=== PATIENT | male | born 1955 | race Caucasian/White ===

== ENCOUNTER 2020-05-22 21:05 | Emergency (ER) | payer OTHER ==
[2020-05-22] MEDS ORDERED: LIDOCAINE VISCOUS 2% SOLN 15 ML UDC PO ONE (21:06)
--- OUTSIDE RECORDS SUMMARY | 2020-05-22 21:08 | XMS REPORT | Clinical Summary ---
:1955 Author Organization [employer] Address [address] [place] [address] Care Team Providers Name Role Phone MD Kaitlin Primary Care Provider Allergies No Known Active Allergies Medications Medication Sig Dispensed Refills Start Date End Date Status magnesium gluconate Take 500 mg 0 Active (MAGONATE) 500 mg by mouth tablet tablet daily as needed. loratadine Take 10 mg by 0 Activ e (CLARITIN) 10 mg mouth daily tablet as needed for allergies. omeprazole Take 1 90 capsule 3 05/19/2019 Active (PriLOSEC) 20 MG capsule (20 capsule mg total) by mouth daily. tadalafiL (CIALIS) Take 5 mg by 0 Active 5 MG tablet mouth daily as needed for erectile dysfunction. cyanocobalamin Take 500 mcg 0 Ac tive (VITAMIN B-12) 500 by mouth MCG tablet daily. vitamin B complex Take by 0 Ac tive vit C no.3 (B mouth. COMPLEX PLUS VITAMIN C ORAL) vit C/vit Take by 0 Active D3/E/zinc/elderberr mouth. y (AIRBORNE VITS ZINC ELDERBERRY ORAL) ezetimibe (ZETIA) TAKE 1 TABLET 90 tablet 3 04/20/2020 Active 10 mg tablet BY MOUTH EVERY DAY carvediloL (COREG) TAKE 1 TABLET 180 tablet 3 05/17/2020 Active 12.5 MG tablet BY MOUTH TWICE A DAY pot chloride/leandra Take by mouth 0 03/27/20 Discontinued phos/mag (MEDI-LYTE as needed. 20 (Med List ORAL) Cleanup) atorvastatin Take 1 tablet 30 tablet 0 02/05/2019 03/27/20 Di scontinued (LIPITOR) 20 MG (20 mg total) 20 (Med List tablet by mouth Cleanup) every evening. carvedilol (COREG) Take 1 tablet 180 tablet 1 02/15/201906/17 Discontinued 12.5 MG tablet (12.5 mg 19 total) by mouth 2 (two) times a day. carvedilol (COREG) TAKE 1 TABLET 180 tablet 1 06/17/201905/17 Discontinued 12.5 MG tablet BY MOUTH TWO 20 TIMES DAILY ezetimibe (Zetia) Take 1 tablet 30 tablet 0 03/29/2020 0 Discontinued 10 mg tablet (10 mg total) 20 by mouth daily. Active Problems Problem Noted Date Alcoholic hepatitis without ascites 03/29/2020 Uncomplicated alcohol dependence 05/19/2019 Prostate cancer 01/21/2019 Anxiety BPH with elevated PSA GERD (gastroesophageal reflux disease) Hyperlipidemia Hypertension Hyponatremia Overview: 2012 was hospitalized; but stated it's in his family genes; takes medi lyte prn Encounters Date Type Specialty Care Team Description 05/16/2020 Refill Internal Medicine Anabella Walker MD 04/20/2020 Refill Internal Medicine Mary Madrigal MD 03/29/2020 Orders Only Internal Medicine Kaitlin, Alcoholic hepatitis without ascites (Primary Dx); MD Mary Mixed hyperlipi demia 03/27/2020 Office Visit Internal Medicine Kaitlin, Encounter for Medicare annual wellness exam (Primary Dx); MD Mary Essential hyper tension; Need for influe nza vaccination; BPH with elevat ed PSA; Prostate cancer (HCC); Gastroesophagea l reflux disease, unspecified whether esophagitis present; Anxiety; Mixed hyperlipi demia; Uncomplicated a lcohol dependence (HCC); Hyponatremia 03/27/2020 Travel 06/16/2019 Refill Internal Medicine Mary Madrigal MD 06/10/2019 Telephone Internal Medicine Mary Madrigal MD 06/07/2019 Hospital Encounter Radiology Kaitlin, Alcoholic cirrhosis of liver without ascites (HCC); MD Mary Abnormal LFTs; Uncomplicated a lcohol dependence (HCC) 06/07/2019 Hospital Encounter Radiology Kaitlin, Alcoholic cirrhosis of liver without ascites (HCC); MD Mary Abnormal LFTs; Uncomplicated a lcohol dependence (HCC) 05/24/2019 Telephone Internal Medicine Kaitlin Alcoholic cirrhosis of liver without ascites (HCC) (Primary Dx); MD Mary Abnormal LFTs; Uncomplicated a lcohol dependence (HCC) after 05/22/2019 Immunizations Name Administration Dates Next Due FLUZONE HIGH-DOSE PF 03/27/2020 Pneumococcal Conjugate 13-Valent 11/05/2018, 08/27/2016 Pneumococcal Polysaccharide 11/05/2018, 07/31/2015 Tdap 03/08/2010 Zoster 10/07/2014 Surgical History Surgery Date Site/Laterality Comments ORIF WRIST FRACTURE 06/23/1986 - Left 06/22/1987 CATARACT EXTRACTION W/ 2000/2002 Bilateral INTRAOCULAR LENS IMPLANT TONSILLECTOMY EYE SURGERY 2001,2002 Both eyes PROSTATECTOMY, 01/22/2019 N/A Procedure: ROBOT -ASSISTED LAPAROSCOPIC, LAPAROSCOPIC ROBOT-ASSISTED PROSTATECTOMY, B ILATERAL PELVIC LYMPH NOD E DISSECTION; Omaira geon: Alfredo Toribio MD; Location: [facility] IN [place]; Service: Urology ; Laterality: N/A; Medical devices from this surgery are in t he Implants section . COLONOSCOPY 06/23/2011 Medical History Medical History Date Comments Hypertension Hyperlipidemia History of concussion 1986- fell out of a tree during work Hyponatremia 2011 was hospitalize d; but stated it's in his family genes; takes medi lyte prn Does not exercise no chest pain or sob on stairs GERD (gastroesophageal reflux disease) Anxiety BPH with elevated PSA Prostate cancer (HCC) DX 11/2018 Scoliosis White coat syndrome with hypertension Dental crowns present Alcohol use 8 cans of beer juan manuel y but trying to cut back Renal insufficiency Hypercholesteremia Family History Medical History Relation Name Comments Heart disease Father CHF Relation Name Status Comments Father Social History Tobacco Use Types Packs/Day Years Used Date Never Smoker Smokeless Tobacco: Never Used Alcohol Use Drinks/Week oz/Week Comments Yes 5 Cans of beer 5.0 Alcohol Habits Answer Date Recorded How often do you have a drink containing 4 or more times a w la posta 05/19/2019 alcohol? How many drinks containing alcohol do you have 5 or 6 05/19/2019 on a typical day when you are drinking? How often do you have six or more drinks on one Monthly 05/19/2019 occasion? Sex Assigned at Date Recorded Male 05/17/2019 7:29 PM [employer] Last Filed Vital Signs Vital Sign Reading Time Taken Comments Blood Pressure 230/97 03/27/2020 11:45 AM CDT Pulse 69 03/27/2020 11:04 AM CDT Temperature 36.3 C (97.4 F) 03/27/2020 11:04 AM CDT Respiratory Rate - - Oxygen Saturation 96% 03/27/2020 11:04 AM CDT Inhaled Oxygen Concentration - - Weight 92.6 kg (204 lb 3.2 oz) 03/27/2020 11:04 AM CDT Height 170.2 cm (5' 7") 03/27/2020 11:04 AM CDT Body Mass Index 31.98 03/27/2020 11:04 AM CDT Plan of Treatment Date Type Specialty Care Team Description 09/25/2020 Office Visit Internal Medicine Mary Madrigal MD [address] [facility] [address] [place] [id number] 01 [phone] Health Maintenance Due Date Last Done Comments SHINGLES VACCINES (#2) 12/07/2014 10/07/2014 COLONOSCOPY SCREENING 06/23/2021 06/23/2011 65+ PNEUMOCOCCAL VACCINE (2 of 2 - 11/06/2023 11/05/2018, 0 11/05/2018, PPSV23) 08/27/2016, Additional history exists INFLUENZA VACCINE Completed 03/27/2020 Implants Implanted Type Area University Relations Recruiter Device Shelf Model / Identifier Expiration Serial / Date Lot Lens Lens Bilatera l: Eye Clip Ligtng Hem-O-Aura Endoscpc Aplr [facility] - [id number] Medica l N/A: N/A WECK CLOSURE 08/04/2020 [id number] / Implanted: Qty: 3 on 01/22/2019 by Alfredo Toribio MD at [facility] Clips for SYSTEMS / Internal Use Matrix Surgcl Matristem 5x5cm Psm Strl - [id number] - [id number] Spinal N/A: N/A [employer] 03/22/2020 [id number] / Implanted: Qty: 1 on 01/22/2019 by Alfredo Toribio MD at [facility] Implants [id number] / [id number] Kit Selnt Fibrin Humn Hmsts Surgy 5ml Evicel - [id number] Surgic al N/A: N/A ETHICON US-EH 08/20/2020 [id number] / Implanted: Qty: 1 on 01/22/2019 by Alfredo Toribio MD at [facility] Implants; / Expanders; [id number] Extenders; Surgical Wires Procedures Procedure Name Priority Date/Time Associated Diagnosis Comme nts VITAMIN B1 LEVEL Routine 03/27/2020 12:01 Encounter for Result s for this CDT Medicare annual procedure ar e in wellness exam the results Essential section. hypertension Need for influenza vaccination BPH with elevate d PSA Prostate cancer (HCC) Gastroesophageal reflux disease, unspecified whether esophagitis pres ent Anxiety Mixed hyperlipid emia Uncomplicated alcohol dependence (HCC) Hyponatremia VITAMIN B12 AND FOLATE Routine 03/27/2020 12:01 Encounter for Results for this CDT Medicare annual procedure ar e in wellness exam the results Essential section. hypertension Need for influenza vaccination BPH with elevate d PSA Prostate cancer (HCC) Gastroesophageal reflux disease, unspecified whether esophagitis pres ent Anxiety Mixed hyperlipid emia Uncomplicated alcohol dependence (HCC) Hyponatremia VITAMIN D 25 HYDROXY Routine 03/27/2020 12:01 Encounter for Re sults for this LEVEL CDT Medicare annual procedure ar e in wellness exam the results Essential section. hypertension Need for influenza vaccination BPH with elevate d PSA Prostate cancer (HCC) Gastroesophageal reflux disease, unspecified whether esophagitis pres ent Anxiety Mixed hyperlipid emia Uncomplicated alcohol dependence (HCC) Hyponatremia HEMOGLOBIN A1C Routine 03/27/2020 12:01 Encounter for Results for this CDT Medicare annual procedure ar e in wellness exam the results Essential section. hypertension Need for influenza vaccination BPH with elevate d PSA Prostate cancer (HCC) Gastroesophageal reflux disease, unspecified whether esophagitis pres ent Anxiety Mixed hyperlipid emia Uncomplicated alcohol dependence (HCC) Hyponatremia THYROID STIMULATING Routine 03/27/2020 12:01 Encounter for Res ults for this HORMONE PM CDT Medicare annual procedure ar e in wellness exam the results Essential section. hypertension Need for influenza vaccination BPH with elevate d PSA Prostate cancer (HCC) Gastroesophageal reflux disease, unspecified whether esophagitis pres ent Anxiety Mixed hyperlipid emia Uncomplicated alcohol dependence (HCC) Hyponatremia LIPID PANEL Routine 03/27/2020 12:01 Encounter for Results fo r this CDT Medicare annual procedure ar e in wellness exam the results Essential section. hypertension Need for influenza vaccination BPH with elevate d PSA Prostate cancer (HCC) Gastroesophageal reflux disease, unspecified whether esophagitis pres ent Anxiety Mixed hyperlipid emia Uncomplicated alcohol dependence (HCC) Hyponatremia COMPREHENSIVE Routine 03/27/2020 12:01 Encounter for Results f or this METABOLIC PANEL PM CDT Medicare annual procedure are in wellness exam the results Essential section. hypertension Need for influenza vaccination BPH with elevate d PSA Prostate cancer (HCC) Gastroesophageal reflux disease, unspecified whether esophagitis pres ent Anxiety Mixed hyperlipid emia Uncomplicated alcohol dependence (HCC) Hyponatremia CBC WITH PLATELET AND Routine 03/27/2020 12:01 Encounter for R esults for this DIFFERENTIAL PM CDT Medicare annual procedure ar e in wellness exam the results Essential section. hypertension Need for influenza vaccination BPH with elevate d PSA Prostate cancer (HCC) Gastroesophageal reflux disease, unspecified whether esophagitis pres ent Anxiety Mixed hyperlipid emia Uncomplicated alcohol dependence (HCC) Hyponatremia FLUZONE HIGH-DOSE QUAD Routine 03/27/2020 11:19 Need for influ richard Results for this PF (0.7ML SYRINGE) AM CDT vaccination procedure are in the results section. ECG 12-LEAD Routine 03/27/2020 11:15 Essential Results for this AM CDT hypertension procedure are i n the results section. URINALYSIS, AUTOMATED Routine 06/14/2019 8:53 Routine general Results for this WITH MICROSCOPY AM [employer] medical examination proce cody are in at a [facility] the results facility section. Prostate cancer (HCC) BPH with elevate d PSA Gastroesophageal reflux disease, esophagitis presence not specified Essential hypertension Mixed hyperlipid emia Anxiety Hyponatremia Refused influenza vaccine Shivering HEPATITIS C ANTIBODY Routine 06/14/2019 8:50 Alcoholic cirrho sis Results for this AM [employer]ER of liver without procedure a re in ascites (HCC) the results Abnormal LFTs section. Uncomplicated alcohol dependence (HCC) BILIRUBIN DIRECT Routine 06/14/2019 8:50 Alcoholic cirrhosis Results for this AM [employer] of liver without procedure a re in ascites (HCC) the results Abnormal LFTs section. Uncomplicated alcohol dependence (HCC) FERRITIN LEVEL Routine 06/14/2019 8:50 Alcoholic cirrhosis Re sults for this AM [employer]ARN[employer]SEMBLER of liver without procedure a re in ascites (HCC) the results Abnormal LFTs section. Uncomplicated alcohol dependence (HCC) HEPATITIS B SURFACE Routine 06/14/2019 8:50 Alcoholic cirrhos is Results for this ANTIBODY AM [employer]ER of liver without procedure a re in ascites (HCC) the results Abnormal LFTs section. Uncomplicated alcohol dependence (HCC) HEPATITIS B SURFACE Routine 06/14/2019 8:50 Alcoholic cirrhos is Results for this ANTIGEN AM [employer] of liver without procedure a re in ascites (HCC) the results Abnormal LFTs section. Uncomplicated alcohol dependence (HCC) HEPATITIS A ANTIBODY Routine 06/14/2019 8:50 Alcoholic cirrho sis Results for this TOTAL AM [employer]ARN[employer]SEM[employer]ER of liver without procedure a re in ascites (HCC) the results Abnormal LFTs section. Uncomplicated alcohol dependence (HCC) TRANSFERRIN LEVEL Routine 06/14/2019 8:50 Alcoholic cirrhosis Results for this AM W[employer]ARN[employer]SEMBLER of liver without procedure a re in ascites (HCC) the results Abnormal LFTs section. Uncomplicated alcohol dependence (HCC) TOTAL IRON BINDING Routine 06/14/2019 8:50 Alcoholic cirrhosi s Results for this CAPACITY AM WIRE [employer]ARNESS ASSEMBLER of liver without procedure a re in ascites (HCC) the results Abnormal LFTs section. Uncomplicated alcohol dependence (HCC) HEPATITIS B CORE Routine 06/14/2019 8:50 Alcoholic cirrhosis Results for this ANTIBODY TOTAL AM [employer]ARNESS [employer]SEMBLER of liver without procedure are in ascites (HCC) the results Abnormal LFTs section. Uncomplicated alcohol dependence (HCC) HEPATITIS A ANTIBODY Routine 06/14/2019 8:50 Alcoholic cirrho sis Results for this IGM AM [employer]ARN[employer]SEMBLER of liver without procedure a re in ascites (HCC) the results Abnormal LFTs section. Uncomplicated alcohol dependence (HCC) PROTHROMBIN TIME WITH Routine 06/14/2019 8:50 Alcoholic cirrh osis Results for this INR AM [employer]ER of liver without procedure a re in ascites (HCC) the results Abnormal LFTs section. Uncomplicated alcohol dependence (HCC) PARTIAL THROMBOPLASTIN Routine 06/14/2019 8:50 Alcoholic cirr hosis Results for this TIME (PTT) AM [employer] of liver without procedure a re in ascites (HCC) the results Abnormal LFTs section. Uncomplicated alcohol dependence (HCC) COPPER LEVEL, SERUM Routine 06/14/2019 8:50 Alcoholic cirrhos is Results for this AM [employer]ARN[employer]SEM[employer]ER of liver without procedure a re in ascites (HCC) the results Abnormal LFTs section. Uncomplicated alcohol dependence (HCC) CBC WITH PLATELET AND Routine 06/14/2019 8:50 Alcoholic cirrh osis Results for this DIFFERENTIAL AM [employer]ARN[employer]SEMBLER of liver without procedure a re in ascites (HCC) the results Abnormal LFTs section. Uncomplicated alcohol dependence (HCC) COMPREHENSIVE Routine 06/14/2019 8:50 Alcoholic cirrhosis Res ults for this METABOLIC PANEL AM [employer]ARNESS [employer]SEMBLER of liver without procedur e are in ascites (HCC) the results Abnormal LFTs section. Uncomplicated alcohol dependence (HCC) US ABDOMINAL DOPPLER Routine 06/07/2019 11:27 Alcoholic cirrho sis Results for this AM [employer]ER of liver without procedure a re in ascites (HCC) the results Abnormal LFTs section. Uncomplicated alcohol dependence (HCC) US ABDOMEN COMPLETE Routine 06/07/2019 11:00 Alcoholic cirrhos is Results for this AM W[employer]ARN[employer]SEM[employer]ER of liver without procedure a re in ascites (HCC) the results Abnormal LFTs section. Uncomplicated alcohol dependence (HCC) after 05/22/2019 Results Vitamin B12 and Folate (03/27/2020 12:01 PM CDT) Vitamin B12 580 200 - 1,100 [facility] pg/mL AGUIRRE Folate >24.0 ng/mL [facility] Comment: AGUIRRE Reference Rang e Low: <3.4 Borderline: 3.4-5.4 Normal: >5.4 Specimen Blood Narrative Performed At FASTING:YES [facility] FASTING: YES Resulting Agency Comment Performing Organization Information: Site ID: [id number] Address: [address] [place] [address] Director: Braden Crowe Performing Organization Address [facility] [place] [address] Vitamin D 25 hydroxy level (03/27/2020 12:01 PM CDT) Vitamin D, 91 30 - 100 [facility] 25-hydroxy Comment: ng/mL AGUIRRE Vitamin D Status 25-OH Vitamin D: Deficiency: <20 ng/mL Insufficiency: 20 - 29 ng/mL Optimal: > or = 30 ng/mL For 25-OH Vitamin D testing on patients on D2-supplementation and patients for whom quantitation of D2 and D3 fractions is required, the [facility]ure[facility](T M) 25-OH VIT D, (D2,D3), LC/MS/MS is recommended: order code 03980 (patients >2yrs). See Note 1 Note 1 For additional information, please refer to http://education.Klout/faq/CEL034 (This link is being provided for informational/ educational purposes only.) Specimen Blood Narrative Performed At FASTING:YES [facility] FASTING: YES Resulting Agency Comment Performing Organization Information: Site ID: [id number] [facility] Address: [address] [place] [phone] Director: Braden Crowe Performing Organization Address [facility] [place] [address] CBC with platelet and differential (03/27/2020 12:01 PM CDT)Only the most recent of2 resultswithin the time period is included. Pathologist Sig nature WBC 9.4 3.8 - 10.8 [facility] Thousand/uL AGUIRRE RBC 4.76 4.20 - 5.80 [facility] Million/uL AG[place] HGB 14.2 13.2 - 17.1 [facility] g/dL AG[place] HCT 42.3 38.5 - 50.0 % [facility] [place] MCV 88.9 80.0 - 100.0 fL [facility] AG[place] MCH 29.8 27.0 - 33.0 pg [facility] AGU[place]RE MCHC 33.6 32.0 - 36.0 [facility] g/dL AG[place]RE RDW 12.1 11.0 - 15.0 % [facility] AGUIRRE Platelet count 219 140 - 400 [facility] Thousand/uL AG[place] MPV 9.5 7.5 - 12.5 fL [facility] AG[place] Neutrophils, absolute 6,514 1,500 - 7,800 [facility] cells/uL AG[place] Lymphocytes, absolute 1,692 850 - 3,900 [facility] cells/uL AG[place] Monocytes, absolute 931 200 - 950 [facility] cells/uL AG[place] Eosinophils, absolute 216 15 - 500 [facility] cells/uL AG[place] Basophils, absolute 47 0 - 200 [facility] cells/uL AGU[place] Neutrophils 69.3 % [facility] AGU[place]RE Lymphocytes 18.0 % [facility] AG[place] Monocytes 9.9 % [facility] AGUIRRE Eosinophils 2.3 % [facility] AGUIRRE Basophils + RC 0.5 % [facility] AGUIRRE Specimen Blood Narrative Performed At FASTING:YES [facility] FASTING: YES Resulting Agency Comment Performing Organization Information: Site ID: [id number] [facility]: [facility] Address: [address] [place] [phone] Director: Braden Crowe Performing Organization Address City/State/ZIP Code Phon e Number [place] [address] [place] [address] [phone] Thyroid stimulating hormone (03/27/2020 12:01 PM CDT) Pathologist Sig [facility] TSH 2.48 0.40 - 4.50 mIU/L [facility] ON Specimen Blood Narrative Performed At FASTING:YES [facility] FASTING: YES Resulting Agency Comment Performing Organization Information: Site ID: [id number] Name: [facility] Address: [address] [place] [phone] Director: Braden Crowe Performing Organization Address [facility] Phon e Number [facility] [place] [address] [place] [address] [phone] Vitamin B1 level (03/27/2020 12:01 PM CDT) Vitamin B1 418 (H) 8 - 30 nmol/L [facility] Comment: EDMONDBLUE TALAMANTES Vitamin supplementation within 24 hours prior to blood draw may affect the accuracy of results. This test was developed and its analytical performance characteristics have been determined by [facility]. It has not been cleared or approved by [facility] FDA. This assay has been validated pursuant to the CLI A regulations and is used for clinical purposes. Specimen Blood Narrative Performed At FASTING:YES [facility] FASTING: YES Resulting Agency Comment Performing Organization Information: Site ID: [id number] Name: [facility] Address: [id number] [place] [phone] Director: Sachin Estrada M.D. Performing Organization Address [facility] Phon e Number [facility] [place] [address] [place] [address] TALAMANTES Hemoglobin A1c (03/27/2020 12:01 PM CDT) Hemoglobin A1C 5.2 <5.7 % of [facility] Comment: total Hgb MAJOR For the purpose of screening for the presence of diabetes: <5.7% Consistent with the absence of diabetes 5.7-6.4% Consistent with increased risk for diabe bull (prediabetes) > or =6.5% Consistent with diabetes This assay result is consistent with a decreased risk of diabetes. Currently, no consensus exists regarding use of hemoglobin A1c for diagnosis of diabetes in children. According to [place] Diabetes Association (ADA) guidelines, hemoglobin A1c <7.0% represents optimal control in non- diabetic patients. Different metrics may apply to specific patient populations. Standards of Medical Care in Diabetes(ADA). Specimen Blood Narrative Performed At FASTING:YES [facility] FASTING: YES Resulting Agency Comment Performing Organization Information: Site ID: [id number] Name: [facility] Address: [address] [place] [phone] Director: Braden Crowe Performing Organization Address [facility] Phon e Number [place] [address] [place], [place] [phone] Lipid panel (03/27/2020 12:01 PM CDT) Cholesterol, total 229 (H) <200 mg/dL [facility] HDL cholesterol 77 > OR = 40 [facility] mg/dL AG[place] Triglycerides 64 <150 mg/dL [facility] [place] LDL cholesterol 136 (H) mg/dL (calc) [facility] calculated Comment: AGUIRRE Reference range: <100 Desirable range <100 mg/dL for primary prevention; <70 mg/dL for patients with CHD or diabetic patients with > or = 2 CHD risk factors. LDL-C is now calculated using the Sarath calculation, which is a validated novel method providi ng better accuracy than the Friedewald equation in the estimation of LDL-C. Erickson OLIVARES et al. JAVI. 2013;310(19): 1578-2002 (http://education.Klout/faq/DXM648) Cholesterol/HDL 3.0 <5.0 (calc) [facility] ratio [place] Non-HDL cholesterol 152 (H) <130 mg/dL [facility] Comment: (calc) AGUIRRE For patients with diabetes plus 1 major ASCVD risk factor, treating to a non-HDL-C goal of <100 mg/dL (LDL-C of <70 mg/dL) is considered a therapeutic option. Specimen Blood Narrative Performed At FASTING:YES [facility] FASTING: YES Resulting Agency Comment Performing Organization Information: Site ID: RGA [facility]: [facility] Address: [address] [place] [phone] Director: Braden Crowe Performing Organization Address [facility] Phon e Number [place] [address] [place], [place] [phone] Comprehensive metabolic panel (03/27/2020 12:01 PM CDT)Only the most recent of2 resultswithin the time period is included. Glucose 103 (H) 65 - 99 [facility] Comment: mg/dL AGUIRRE Fasting reference interval For someone without known diabetes, a glucose value between 100 and 125 mg/dL is consistent with prediabetes and should be confirmed with a follow-up test. BUN 6 (L) 7 - 25 mg/dL [facility] [place] Creatinine 0.72 0.70 - 1.25 [facility] Comment: mg/dL AGUIRRE For patients >49 years of age, the reference limit for Creatinine is approximately 13% higher for people identified as -[place]. EGFR Non-Afr. 97 > OR = 60 [facility] [place] mL/min/1.73m AGU[place]RE 2 EGFR 113 > OR = 60 [facility] [place] mL/min/1.73m AGUIRRE 2 BUN/creatinine 8 6 - 22 [facility] ratio (calc) [place] Sodium 129 (L) 135 - 146 [facility] mmol/L [place] Potassium 4.5 3.5 - 5.3 [facility] mmol/L AGUIRRE Chloride 92 (L) 98 - 110 [facility] mmol/L [place] CO2 27 20 - 32 [facility] mmol/L AG[facility] Calcium 9.6 8.6 - 10.3 [facility] mg/dL AG[place] Protein 7.1 6.1 - 8.1 [facility] g/dL AG[place] Albumin, S 4.3 3.6 - 5.1 [facility] g/dL [place] Globulin, total 2.8 1.9 - 3.7 [facility] g/dL (calc) AGUIRRE Albumin/globulin 1.5 1.0 - 2.5 [facility] ratio (calc) AGUIRRE Total bilirubin 0.6 0.2 - 1.2 [facility] mg/dL AGUIRRE Alkaline 84 35 - 144 U/L [facility] phosphatase AG[facility] AST 72 (H) 10 - 35 U/L [facility] [place] ALT 62 (H) 9 - 46 U/L [facility] [place] Specimen Blood Narrative Performed At FASTING:YES [facility] FASTING: YES Resulting Agency Comment Performing Organization Information: Site ID: RGA Name: [facility] Address: [address] [place] [phone] Director: Braden Crowe Performing Organization Address City/State/ZIP Code Phon e Number [place] [phone] Fluzone High-Dose Quad PF (0.7mL syringe) (03/27/2020 11:19 AM CDT) Narrative Performed At Flu Vaccine Questions: 1. Have you ever had an allergic reactio n to the flu Vaccine?: no 2. Are you allergic to eggs, egg product s or gelatin?: no 3. Do you have a history of Guillain -Ba rre Syndrome?: no 4. Are you allergic to Thimerosal?: no 5. Are you allergic to Latex?: no 6. Do you currently feel ill or have a f ever?: no 7. If you are a female, are you ?: no All yes answers to the questions above are reviewed wi th the physician before proceeding. Bladimir Knutson MA ECG 12 lead (03/27/2020 11:15 AM CDT) Pathologist Sig nature Ventricular rate 65 [facility] Atrial rate 65 [facility] ID interval 212 [facility] QRSD interval 84 [facility] QT interval 406 [facility] QTC interval 422 [facility] P axis 1 32 [facility] QRS axis 1 -44 [facility] T wave axis 34 [facility] EKG impression Sinus rhythm with 1st [facility] degree AV block-Left axis deviation-Abnormal ECG-In automated comparison with ECG of 14-JAN-2019 15:34,-No significant change was found- Specimen Narrative Performed At This result has an attachment that is no t available. Performing Organization Address City/State/ZIP Code Phon e Number [facility] MUSE [address] [place] [address] Urinalysis, automated with microscopy (06/14/2019 8:53 AM WIRE HARNESS ASSEMBLER) Color, UA YELLOW YELLOW [facility] [place] Appearance CLEAR CLEAR [facility] Specific gravity, 1.013 1.001 - 1.035 [facility] urine AGUIRRE pH, urine 5.5 5.0 - 8.0 [facility] [place] Glucose, urine NEGATIVE NEGATIVE [facility] [place] Bilirubin, UA NEGATIVE NEGATIVE [facility] [place] Ketones, UA NEGATIVE NEGATIVE [facility] [place] Occult blood, urine NEGATIVE NEGATIVE [facility] [place] Protein, UA NEGATIVE NEGATIVE [facility] [place] Nitrite, UA NEGATIVE NEGATIVE [facility] [place] Leukocyte esterase, NEGATIVE NEGATIVE [facility] UA [place] WBC, UA NONE SEEN < OR = 5 /HPF [facility] [place] RBC, UA NONE SEEN < OR = 2 /HPF [facility] [place] Squamous epithelial NONE SEEN < OR = 5 /HPF [facility] cells, UA [place] Bacteria, UA NONE SEEN NONE SEEN /HPF [facility] [place] Hyaline casts, UA NONE SEEN NONE SEEN /LPF [facility] Specimen Urine Narrative Performed At [facility] 05/19/2019 FROM [id number] [facility] Resulting Agency Comment Performing Organization Information: Site ID: JULIEN Name: [facility] Address: [address] [place] [phone] Director: Braden Crowe Performing Organization Address [facility] Phon e Number [facility] [place] [address] [place] [address] [phone] Total iron binding capacity (06/14/2019 8:50 AM WIRE HARNESS ASSEMBLER) Pathologist Sig nature Iron level 147 50 - 180 mcg/dL [facility] [place] Iron binding capacity 333 250 - 425 mcg/dL [facility] (calc) AGU[place] Iron saturation 44 20 - 48 % (calc) [facility] [place] Specimen Blood Narrative Performed At FASTING:YES [facility] FASTING: YES Resulting Agency Comment Performing Organization Information: Site ID: JULIEN Name: [facility] Address: [address] [place] [phone] Director: Braden Crowe Performing Organization Address [facility] Phon e Number [place] [address] [place], [place] [phone] Hepatitis C antibody (06/14/2019 8:50 AM WIRE HARNESS ASSEMBLER) Hepatitis C Ab NON-REACTIVE NON-REACTIVE [facility] [place] Signal/cutoff 0.01 <1.00 [facility] Comment: AGUIRRE HCV antibody was non-reactive. There is no laboratory evidence of HCV infection. In most cases, no further action is required. However, if recent HCV exposure is suspected, a test for HCV RN A (test code 90351) is suggested. For additional information please refer to http://education.iJukebox/faq/FQY56b1 (This link is being provided for informational/ educational purposes only.) Specimen Blood Narrative Performed At FASTING:YES [facility] FASTING: YES Resulting Agency Comment Performing Organization Information: Site ID: JULIEN Name: [facility] Address: [address] [place] [phone] Director: Braden Crowe Performing Organization Address [facility] Phon e Number [place] [address] [place] [phone] Copper level, serum (06/14/2019 8:50 AM WIRE HARNESS ASSEMBLER) Copper 147 70 - 175 [facility] Comment: mcg/dL DANIEL TALAMANTES This test was developed and its analytical performance characteristics have been determined by [facility]. It has not been cleared or approved by [facility] FDA. This assay has been validated pursuant to the CLI A regulations and is used for clinical purposes. Specimen Narrative Performed At FASTING:YES [facility] FASTING: YES Resulting Agency Comment Performing Organization Information: Site ID: [id number] Name: [facility] grew[facility] Address: [id number] [place] [phone] Director: Lalo Cisneros M.D., Ph. D Performing Organization Address [facility] Phon e Number [facility] [place] EDMOND [address] [place] [phone] TALAMANTES Hepatitis A antibody IgM (06/14/2019 8:50 AM WIRE HARNESS ASSEMBLER) Pathologist [facility] Hepatitis A IgM NON-REACTIVE NON-REACTIVE [facility] Comment: AGUIRRE For additional information, please refer to http://[employer]ion [employer].iJukebox/faq/QJE749 (This link is being provided for informational/ educational purposes only.) Specimen Blood Narrative Performed At FASTING:YES [facility] FASTING: YES Resulting Agency Comment Performing Organization Information: Site ID: RGA [facility]: [facility] Address: [address] [place] [phone] Director: Braden Crowe Performing Organization Address [facility] Phon e Number [place] [address] [address] Hepatitis A antibody total (06/14/2019 8:50 AM WIRE HARNESS ASSEMBLER) [facility] Hepatitis A total NON-REACTIVE NON-REACTIVE [facility] Ab Comment: AGUIRRE For additional information, please refer to http://[employer].iJukebox/faq/MDT289 (This link is being provided for informational/ educational purposes only.) Specimen Blood Narrative Performed At FASTING:YES [facility] FASTING: YES Resulting Agency Comment Performing Organization Information: Site ID: RGA Name: [facility] Address: [address] [place] [phone] Director: Braden Crowe Performing Organization Address [facility] Phon e Number [facility] [place] [address] [place] [address] Hepatitis B core antibody total (06/14/2019 8:50 AM WIRE HARNESS ASSEMBLER) Hepatitis B core NON-REACTIVE NON-REACTIVE [facility] total [facility] Specimen Blood Narrative Performed At FASTING:YES [facility] FASTING: YES Resulting Agency Comment Performing Organization Information: Site ID: RGA Name: [facility] Address: [address] [place] [phone] Director: Braden Crowe Performing Organization Address [facility] Phon e Number [facility] [place] [address] Hepatitis B surface antibody (06/14/2019 8:50 AM WIRE HARNESS ASSEMBLER) Hepatitis B surface NON-REACTIVE NON-REACTIVE [facility] Specimen Blood Narrative Performed At FASTING:YES [facility] FASTING: YES Resulting Agency Comment Performing Organization Information: Site ID: RGA Name: [facility] Address: [address] [place] [phone] Director: Braden Crowe Performing Organization Address [facility] Phon e Number [facility] [place] [address] Hepatitis B surface antigen (06/14/2019 8:50 AM WIRE HARNESS ASSEMBLER) Hepatitis B surface NON-REACTIVE NON-REACTIVE [facility] Specimen Blood Narrative Performed At FASTING:YES [facility] FASTING: YES Resulting Agency Comment Performing Organization Information: Site ID: RGA Name: [facility] Address: [address] [place] [phone] Director: Braden Crowe Performing Organization Address [facility] Phon e Number [facility] [place] [address] Partial thromboplastin time, activated (06/14/2019 8:50 AM WIRE HARNESS ASSEMBLER) Pathologist [facility] PTT 34 22 - 34 sec [facility] Comment: AGUIRRE This test has not been validated for monitoring unfractionated heparin therapy. For testing that is validated for this type of therapy, please refer to the Heparin Anti-Xa assay (test code 60743). For additional information, please refer to http://Scion Global.Klout/faq/NNW234 (This link is being provided for informational/educational purposes only.) Specimen Narrative Performed At FASTING:YES [facility] FASTING: YES Resulting Agency Comment Performing Organization Information: Site ID: RGA Name: [facility] Address: [address] [place] [phone] Director: Braden Crowe Performing Organization Address [facility] Phon e Number [place] [address] Prothrombin time with INR (06/14/2019 8:50 AM WIRE HARNESS ASSEMBLER) INR 1.0 [facility] Comment: AGUIRRE Reference Range 0.9-1.1 Moderate-intensity Warfarin Therapy 2.0-3.0 Higher-intensity Warfarin Therapy 3.0-4.0 Prothrombin time 10.5 9.0 - 11.5 [facility] Comment: amber MAJOR For more information on this test, go to: http://Scion [employer].iJukebox/faq/KYB981 Specimen Narrative Performed At FASTING:YES [facility] FASTING: YES Resulting Agency Comment Performing Organization Information: Site ID: RGA Name: [facility] Address: [address] [place] [phone] Director: Braden Crowe Performing Organization Address [facility] Phon e Number [place] [address] Transferrin level (06/14/2019 8:50 AM WIRE HARNESS ASSEMBLER) Pathologist Sig nature Transferrin 259 188 - 341 mg/dL [facility]ICO[facility] II Specimen Blood Narrative Performed At FASTING:YES [facility] FASTING: YES Resulting Agency Comment Performing Organization Information: Site ID: IG [facility]: [facility] Address: [address] [place] [phone] Director: Dr. Braden mcnair Performing Organization Address [facility] Phon e Number [facility] II [address] [place] [address] Ferritin level (06/14/2019 8:50 AM WIRE HARNESS ASSEMBLER) Pathologist Sig nature Ferritin level 73 24 - 380 ng/mL [facility] Specimen Blood Narrative Performed At FASTING:YES [facility] FASTING: YES Resulting Agency Comment Performing Organization Information: Site ID: JULIEN Name: [facility] Address: [address] [place] [phone] Director: Braden Crowe Performing Organization Address [facility] [place] [address] Bilirubin direct (06/14/2019 8:50 AM WIRE HARNESS ASSEMBLER) Pathologist Sig nature Bilirubin direct 0.1 < OR = 0.2 mg/dL [facility] [place] Specimen Narrative Performed At FASTING:YES [facility] FASTING: YES Resulting Agency Comment Performing Organization Information: Site ID: JULIEN Name: [facility] Address: [address] [place] [phone] Director: Braden Crowe Performing Organization Address [facility] Phon e Number [place] [address] [place] Abdominal Doppler (06/07/2019 11:27 AM WIRE HARNESS ASSEMBLER) Specimen Narrative Performed At EXAMINATION: US ABDOMINAL DOPPLER HM [facility] CLINICAL HISTORY: K70.30 Alcoholic cirrhosis of live r without ascites, R94.5 Abnormal results of liver function studies, Naresh temesis, Portal HTN COMPARISON: Same day abdominal ultraso und. TECHNIQUE: Daniel scale, color Doppler and spectral wave form analysis of the hepatic vasculature. IMPRESSION: 1. PORTAL VEINS: *Main portal vein: The main portal vein is patent. Por lanny vein velocity is 19.3 cm/sec. *Left Portal Vein: Not well seen. *Right Portal Vein:The right portal vein is patent. 2. HEPATIC VEINS: *Right Hepatic Vein: The right hepatic v ein is patent. *Middle Hepatic Vein: The middle hepatic vein is patent. *Left Hepatic Vein: The left hepatic vei n is patent. 3. HEPATIC ARTERIES: *Right Hepatic Artery: Not well seen. *Left Hepatic Artery: Not well seen. 4. IVC: The inferior vena cava is patent . 5. SMV: The superior mesenteric vein is not well seen. 6. SPLENIC ARTERY/VEINS: *Splenic Artery/Vein at Spleen: The splenic artery/vei n at the spleen are patent. *Splenic Artery/Vein at Midline: The splenic artery/ve in at the midline are not well seen. Dictated and approved by radiology rn/fellow: Vincent Lew M.D. I, Donovan Mir Jr., M.D., personally reviewed the figueroa ges and resident's/fellow's findings and agree with the final report. Procedure Note Hm Interface, Radiology Results Incoming - 06/07/2019 1:58 PM WIRE HARNESS ASSEMBLER EXAMINATION: US ABDOMINAL DOPPLER CLINICAL HISTORY: K70.30 Alcoholic cirr hosis of liver without ascites, R94.5 Abnormal results of liver function studies, Hematemesis, Portal HTN COMPARISON: Same day abdominal ultrasou nd. TECHNIQUE: Daniel scale, color Doppler and spectral waveform analysis of the hepatic vasculature. IMPRESSION: 1. PORTAL VEINS: *Main portal vein: The main portal vein is patent. Portal vein velocity is 19.3 cm/sec. *Left Portal Vein: Not well seen. *Right Portal Vein:The right portal vein is patent. 2. HEPATIC VEINS: *Right Hepatic Vein: The right hepatic v ein is patent. *Middle Hepatic Vein: The middle hepatic vein is patent. *Left Hepatic Vein: The left hepatic vei n is patent. 3. HEPATIC ARTERIES: *Right Hepatic Artery: Not well seen. *Left Hepatic Artery: Not well seen. 4. IVC: The inferior vena cava is patent . 5. SMV: The superior mesenteric vein is not well seen. 6. SPLENIC ARTERY/VEINS: *Splenic Artery/Vein at Spleen: The sple marilyn artery/vein at the spleen are patent. *Splenic Artery/Vein at Midline: The spl enic artery/vein at the midline are not well seen. Dictated and approved by radiology resid ent/fellow: Isaiah Lew M.D. I, Donovan Mir Jr., M.D., personally re viewed the images and resident's/fellow's findings and agree with the final report. Performing Organization Address City/State/ZIP Code Phon e Number [facility] [address] [place] [address] US Abdomen Complete (06/07/2019 11:00 AM WIRE HARNESS ASSEMBLER) Specimen Narrative Performed At EXAM: [facility] CLINICAL DATA: K70.30 Alcoholic cirrhosis of liver w ithout ascites, R94.5 Abnormal results of liver function studies, Abn liver function tests (LFTs), Cirrhosis or Fatty Liver, abn lfts COMPARISON: NONE. FINDINGS: Findings are limited due to patient body habitus and adjacent bowel gas. LIVER: The liver demonstrates increased echogenicity , consistent with fatty infiltration. No focal mass or intrahepatic bili adrian ductal dilatation. MPV: Doppler evaluation of the portal vein demonstra bull normal hepatopedal flow. The main portal vein measures 0.9 cm , within normal limits. GALLBLADDER: The gallbladder is without evidence of calculi. The gallbladder wall is not thickened and th ere is no pericholecystic fluid. CBD: The common bile duct is not well vi sualized. PANCREAS: The visualized portions of the pancreas ar e within normal limits. SPLEEN: The spleen is homogeneous and not enlarged m easuring 9.3 x 2.3 x 3.2 cm. RIGHT KIDNEY: The right kidney is normal in size and echogenicity. There is no evidence of mass, calculi, or hydronephros is. The right kidney measures 10.1 x 4.3 x 4.9 cm. LEFT KIDNEY: The left kidney is normal in size and e chogenicity. There is no evidence of mass, calculi, or hydronephrosis. Th e left kidney measures 10.5 x 6.6 x 4.7 cm. AORTA: The visualized upper abdominal aorta demonstr ates no evidence of ectasia or aneurysm. IVC: The visualized portions of the inferior vena ca va are unremarkable. ASCITES: No abnormal abdominal fluid collections are v isualized. There is no evidence of ascites. PLEURAL EFFUSION: There are no pleural effusions. IMPRESSION: Hepatic steatosis. [facility]-[id number] Dictated and approved by radiology rn/fellow: Vincent Lew M.D. I, Donovan Mir Jr., M.D., personally reviewed the [facility] ges and resident's/fellow's findings and agree with the final report. Procedure Note [facility], Radiology Results Incoming - 06/07/2019 1:54 PM WIRE HARNESS ASSEMBLER EXAM: US ABDOMEN COMPLETE CLINICAL DATA: K70.30 Alcoholic cirrhos is of liver without ascites, R94.5 Abnormal results of liver function studies, Abn liver function tests (LFTs), Cirrhosis or Fatty Liver, abn lfts COMPARISON: NONE. FINDINGS: Findings are limited due to patient body habitus and adjacent bowel gas. LIVER: The liver demonstrates increased echogenicity, consistent with fatty infiltration. No focal mass or intrahepatic biliary ductal dilatation. MPV: Doppler evaluation of the portal v ein demonstrates normal hepatopedal flow. The main portal vein measures 0.9 cm, within normal limits. GALLBLADDER: The gallbladder is without evidence of calculi. The gallbladder wall is not thickened and there is no pericholecystic fluid. CBD: The common bile duct is not well vi sualized. PANCREAS: The visualized portions of th e pancreas are within normal limits. SPLEEN: The spleen is homogeneous and n ot enlarged measuring 9.3 x 2.3 x 3.2 cm. RIGHT KIDNEY: The right kidney is juan l in size and echogenicity. There is no evidence of mass, calculi, or hydronephrosis. The right kidney measures 10.1 x 4.3 x 4.9 cm. LEFT KIDNEY: The left kidney is normal in size and echogenicity. There is no evidence of mass, calculi, or hydronephrosis. The left kidney measures 10.5 x 6.6 x 4.7 cm. AORTA: The visualized upper abdominal a echo demonstrates no evidence of ectasia or aneurysm. IVC: The visualized portions of the inf erior vena cava are unremarkable. ASCITES: No abnormal abdominal fluid col lections are visualized. There is no evidence of ascites. PLEURAL EFFUSION: There are no pleural effusions. IMPRESSION: Hepatic steatosis. [facility]-[id number] Dictated and approved by radiology resid ent/fellow: Isaiah Lew M.D. I, Donovan Mir Jr., M.D., personally re viewed the images and resident's/fellow's findings and agree with the final report. Performing Organization Address City/State/ZIP Code Phon e Number [facility] [address] [place] [address] after 05/22/2019 Advance Directives For more information, please contact: [phone] Type Date Recorded Patient User Experience Developer Explanati on Advance Directives, Living Will 01/21/2019 4:28 PM and Medical Power of District Or District Office Director
--- OUTSIDE RECORDS SUMMARY | 2020-05-22 21:09 | XMS REPORT | Continuity of Care Document ---
:1955 Author Organization [facility] t Address 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 ston hepatitis hepatitis 0-07 Meth roman without without 00:00: st ascites ascites 00 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 H rikki juan ramon juan ramon 1 Methodi alcohol alcohol 00:00: st dependence dependence 00 Prostate Prostate Disease Active [place] cancer cancer 01-21 Methodi 00:00: st 00 Anxiety Anxiety Disease Active [facility] Methodi st BPH with BPH with Disease Active [place] elevated elevated Method i PSA PSA st GERD GERD Disease Active [place] (gastroeso (gastroeso Me thodi phageal phageal st reflux reflux disease) disease) Hyperlipid Hyperlipid Disease Active H [facility] emia Methodi st Hypertensi Hypertensi Disease Active H on on Methodi st Hyponatrem Hyponatrem Disease Active Overview : Napavine ia [address] zed; but stated it's in his family genes; takes medi lyte prn Allergies, Adverse Reactions, Alerts This patient has no known allergies or adverse reactions. Family History Family Member Diagnosis Comments Start Date Stop Date Source Natural father Heart disease Lu Anabaptist Social History Social Habit Start Date Stop Date Quantity Comments Source Sex Assigned At M Lu Celso ethodist Tobacco use and 2020-03-27 2020-03-27 Never used [facility] ethodist exposure 00:00:00 00:00:00 Alcohol intake 2020-03-27 2020-03-27 Current drinker [place] Anabaptist 00:00:00 00:00:00 of alcohol (finding) History [facility] 2019-05-19 2019-05-19 5 [place] Meth odist Alcohol Frequency 00:00:00 00:00:00 History [facility] 2019-05-19 2019-05-19 3 [place] Meth odist Alcohol Std Drinks 00:00:00 00:00:00 History [facility] 2019-05-19 2019-05-19 3 [place] Meth odist Alcohol Binge 00:00:00 00:00:00 Smoking Status Start Date Stop Date Source Never smoker [facility] Jadis t Medications Ordered Filled Start Stop Current Ordering Indication Dosage Frequency Signature Comments Components Source Medication Medication Date Date Medication? Clinician (SIG) Name Name carvediloL 2019-06 Yes TAKE 1 [place] (COREG) 1-25 TABLET BY Methodi 12.5 MG 00:00: MOUTH st tablet 00 TWICE A DAY ezetimibe 2019-06 Yes TAKE 1 [place] (ZETIA) 10 0-29 TABLET BY Meth roman mg tablet 00:00: MOUTH st 00 EVERY DAY ezetimibe 2019-06 2020- No 10mg QD Take 1 [place] (Zetia) 10 0-07 10-29 tablet (10 Me thodi mg tablet 00:00: 00:00 mg total) st 00 :00 by mouth daily. cyanocobala 2019-06 Yes 500ug QD Take 500 [place] min 0-05 mcg by Methodi (VITAMIN 13:15: mouth st B-12) 500 19 daily. MCG tablet vitamin B 2019-06 Yes Take by [place] complex vit 0-05 mouth. Method i C no.3 (B 13:15: st COMPLEX 19 PLUS VITAMIN C ORAL) vit C/vit 2019-06 Yes Take by [place] D3/E/zinc/e 0-05 mouth. Method i lderberry 13:15: st (AIRBORNE 19 VITS ZINC ELDERBERRY ORAL) pot 2019-06- No Take by Lu chloride/ca 0-05 10-05 mouth as Met hodi l phos/mag 11:08: 00:[address] (MEDI-LYTE 26 :00 ORAL) loratadine 2019-06 Yes 10mg Q24H Take 10 mg [place] (CLARITIN) 0-05 by mouth Metho di 10 mg 11:08: daily as st tablet 22 needed for allergies. tadalafiL 2019-06 Yes 5mg Q24H Take 5 mg Joyce ston (CIALIS) 5 0-05 by mouth Metho di MG tablet 11:08: daily as st 22 needed for erectile dysfunctio n. magnesium 2019-06 Yes 500mg Q24H Take 500 Joyce ston gluconate 0-05 mg by Methodi (MAGONATE) 11:07: mouth st 500 mg 05 daily as tablet needed. tablet carvedilol 2018-06- No TAKE 1 [place] (COREG) 2-26 11-25 TABLET BY Method i 12.5 MG 00:00: 00:[address] tablet 00 :00 TIMES DAILY omeprazole 2018-06 Yes 20mg QD Take 1 [place] (PriLOSEC) 1-27 capsule Method i 20 MG 00:00: ([address] capsule 00 total) by mouth daily. carvedilol 2018- No 12.5mg Q.5D Take 1 [place] (COREG) 8-26 12-26 tablet Methodi 12.5 MG 00:00: 00:00 (12.[address] tablet 00 :00 total) by mouth 2 (two) times a day. atorvastati 2019- No 20mg QD Take 1 Joyce ston n (LIPITOR) 8-16 10-05 tablet (20 M ethodi 20 MG 00:00: 00:00 mg total) st tablet 00 :00 by mouth every evening. Immunizations Ordered Immunization Filled Immunization Date Status Commen ts Source Name Name FLUZONE HIGH-DOSE PF 2020-03-27 Completed [place] 00:00:00 Anabaptist Pneumococcal 2018-11-05 Completed Aly Polysaccharide 00:00:00 Anabaptist Pneumococcal 2018-11-05 Completed Aly Conjugate 13-Valent 00:00:00 Metho dist Pneumococcal 2016-08-27 Completed [place] Conjugate 13-Valent 00:00:00 Metho dist Pneumococcal 2015-07-31 Completed [place] Polysaccharide 00:00:00 Anabaptist Zoster 2014-10-07 Completed [place] 00:00:00 Anabaptist Tdap 2010-03-08 Completed [place] 00:00:00 Anabaptist Vital Signs Vital Name Observation Time Observation Value Comments Source Systolic blood 2020-03-27 11:45:00 230 mm[Hg] [place] Anabaptist pressure Diastolic blood 2020-03-27 11:45:00 97 mm[Hg] [place] Anabaptist pressure Heart rate 2020-03-27 11:04:00 69 /min Lu Anabaptist Body temperature 2020-03-27 11:04:00 36.33 Zabrina [place] Anabaptist Body height 2020-03-27 11:04:00 170.2 cm Lu Anabaptist Body weight 2020-03-27 11:04:00 92.625 kg Lu Anabaptist BMI 2020-03-27 11:04:00 31.98 kg/m2 Aly Lamar Oxygen saturation in 2020-03-27 11:04:00 96 /min [place] Anabaptist Arterial blood by Pulse oximetry Procedures Procedure Date / Time Performing Clinician Source Performed CBC WITH PLATELET AND 2020-03-27 12:01:00 Mely Madrigal n Anabaptist DIFFERENTIAL COMPREHENSIVE METABOLIC 2020-03-27 12:01:00 Mely Madrigal Anabaptist PANEL LIPID PANEL 2020-03-27 12:01:00 Mely Madrigal Meth odist THYROID STIMULATING 2020-03-27 12:01:00 Mely Madrigal Anabaptist HORMONE HEMOGLOBIN A1C 2020-03-27 12:01:00 Mely Madrigal odist VITAMIN D 25 HYDROXY LEVEL 2020-03-27 12:01:00 Mely Madrigal Anabaptist VITAMIN B12 AND FOLATE 2020-03-27 12:01:00 Mely Madrigal on Anabaptist VITAMIN B1 LEVEL 2020-03-27 12:01:00 Mely Madrigal hodaristeo FLUZONE HIGH-DOSE QUAD PF 2020-03-27 11:19:00 Mely Madrigal Anabaptist (0.7ML SYRINGE) ECG 12-LEAD 2020-03-27 11:15:15 Mely Madrigal Meth odist URINALYSIS, AUTOMATED WITH 2019-06-14 08:53:00 Mely Madrigal MICROSCOPY COMPREHENSIVE METABOLIC 2019-06-14 08:50:00 Mely Madrigal Anabaptist PANEL CBC WITH PLATELET AND 2019-06-14 08:50:00 Mely Madrigal n Anabaptist DIFFERENTIAL COPPER LEVEL, SERUM 2019-06-14 08:50:00 Mely Madrigal PARTIAL THROMBOPLASTIN 2019-06-14 08:50:00 Mely Madrigal on Anabaptist TIME (PTT) PROTHROMBIN TIME WITH INR 2019-06-14 08:50:00 Mely Madrigal HEPATITIS A ANTIBODY IGM 2019-06-14 08:50:00 Mely Madrigal ston Anabaptist HEPATITIS B CORE ANTIBODY 2019-06-14 08:50:00 Mely Madrigal TOTAL TOTAL IRON BINDING 2019-06-14 08:50:00 Mely Madrigal M ethodist CAPACITY TRANSFERRIN LEVEL 2019-06-14 08:50:00 Mely Madrigal Me thodist HEPATITIS A ANTIBODY TOTAL 2019-06-14 08:50:00 Mely Madrigal HEPATITIS B SURFACE 2019-06-14 08:50:00 Mely Madrigal ANTIGEN HEPATITIS B SURFACE 2019-06-14 08:50:00 Mely Madrigal ANTIBODY FERRITIN LEVEL 2019-06-14 08:50:00 Mely Madrigal Meth odist BILIRUBIN DIRECT 2019-06-14 08:50:00 Mely Madrigal Met hodist HEPATITIS C ANTIBODY 2019-06-14 08:50:00 Mely Madrigal US ABDOMINAL DOPPLER 2019-06-07 11:27:00 Mely Madrigal US ABDOMEN COMPLETE 2019-06-07 11:00:00 Mely Madrigal Plan of Care Planned Activity Planned Date Details Comments Source Future Scheduled 2023-11-06 65+ PNEUMOCOCCAL Aly Lamar Test 00:00:00 VACCINE (2 of 2 - PPSV23) [code = 65+ PNEUMOCOCCAL VACCINE (2 of 2 - PPSV23)] Future Scheduled 2021-06-23 COLONOSCOPY SCREENING Andrew Lamar Test 00:00:00 [code = COLONOSCOPY SCREENING] Future Scheduled 2014-12-07 SHINGLES VACCINES (#2) H rikki Anabaptist Test 00:00:00 [code = SHINGLES VACCINES (#2)] Encounters Start End Encounter Admission Attending Care Care Encounter Source Date/Time Date/Time Type Type Clinicians Facility Department ID 2020-03-27 2020-03-27 Outpatient [facility] [id number] Lu 00:00:00 00:00:00 MELY [address] Results Test Description Test Time Test Comments Results Result Comments Source ECG 12 lead 2020-03-31 21:29:54 Test Item Value Reference Range Interpretation Comme nts Ventricular rate (test code = 253) 65 Atrial rate (test code = 255) 65 SD interval (test code = 266) 212 QRSD interval (test code = 260) 84 QT interval (test code = 264) 406 QTC interval (test code = 265) 422 P axis 1 (test code = 267) 32 QRS axis 1 (test code = 268) -44 T wave axis (test code = 270) 34 EKG impression (test code = 273) Sinus rhythm with 1st degree AV bl ock-Left axis deviation-Abnormal ECG-In automated comparison with ECG of 14-JAN-2019 15:34,-No significant change was found- [place] AnabaptistComprehensive metabolic [id number] 12:17:00 Test Item Value Reference Interpretation Comments Range Glucose (test code 103 mg/dL 65-99 H Fasting = 2345-7) reference inter dmitriy For someone wit hout known diabetes, a glucose valuebe tween 100 and 125 mg/ dL is consistent withprediabetes and should be confi rmed with afollow-up test. BUN (test code = 6 mg/dL 7-25 L 3094-0) Creatinine (test 0.72 mg/dL 0.7-1.25 For patient s >49 code = 2160-0) years of age, the reference limit for Creatinine is approximately 1 3% higher for peopleidentifie d as -Anahi n. EGFR Non-Afr. 97 > OR = 60 Bulgarian (test code mL/min/1.73m2 = 2775) EGFR 113 > OR = 60 Bulgarian (test code mL/min/1.73m2 = 39761-3) BUN/creatinine 8 6- 22 (calc) ratio (test code = 3097-3) Sodium (test code = 129 mmol/L 135-146 L 2951-2) Potassium (test 4.5 mmol/L 3.5-5.3 code = 2823-3) Chloride (test code 92 mmol/L 98-110 L = 2075-0) CO2 (test code = 27 mmol/L 20-32 2027-9) Calcium (test code 9.6 mg/dL 8.6-10.3 = 96821-5) Protein (test code 7.1 g/dL 6.1-8.1 = 2885-2) Albumin, S (test 4.3 g/dL 3.6-5.1 code = 1751-7) Globulin, total 2.8 1.9- 3.7 g/dL (test code = (calc) 41986-6) Albumin/globulin 1.5 1.0- 2.5 ratio (test code = (calc) 1759-0) Total bilirubin 0.6 mg/dL 0.2-1.2 (test code = 1974-2) Alkaline 84 U/L 35-144 phosphatase (test code = 6768-6) AST (test code = 72 U/L 10-35 H 192-8) ALT (test code = 62 U/L 9-46 H 174-6) MUKESH (test code = FASTING:YESFASTIN MUKESH) G: YES RAC (test code = Performing RAC) Organization Information: Site ID: RGA [facility] Lab Address: [address] [place] [phone] Director: Braden Crowe Lab Interpretation Abnormal (test code = 68256-6) [place] MethodistLipid [id number] 12:17:00 Test Item Value Reference Range Interpretation Comments Cholesterol, total 229 mg/dL <200 H (test code = 2092-3) HDL cholesterol 77 mg/dL > OR = 40 (test code = 2084-9) Triglycerides (test 64 mg/dL <150 code = 2570-8) LDL cholesterol 136 mg/dL (calc) H Reference ra nge: calculated (test <100 Desira ble code = 60009-3) range <100 m g/dL for primary prevention; <7 0 mg/dL for patients with C HD or diabetic patients with > or = 2 CHD risk factors. LDL-C is now calculated using the Sarath calculation, which is a validated novel method providin g better accuracy than the Friedewald equation in the estimation of LDL-C. Erickson Marie S et al. JAVI. 2013;310(19): 2419-7737 (http://educati on .IMGuest .com/faq/FUH584 ) Cholesterol/HDL 3.0 <5.0 (calc) ratio (test code = 9830-1) Non-HDL cholesterol 152 <130 mg/dL H For adan ents with (test code = (calc) diabetes plus 1 66762-2) major ASCVD ris k factor, treatin g to a non-HDL-C goal of <100 mg/dL (LDL-C of <70 mg/dL) is considered a therapeutic option. MUKESH (test code = FASTING:YESFASTING MUKESH) : YES RAC (test code = Performing RAC) Organization Information: Site ID: RGA Name: [facility] Lab Address: [address] [place] [phone] Director: Braden Crowe Lab Interpretation Abnormal (test code = 84861-3) [place] MethodistHemoglobin [id number] 12:17:00 Test Item Value Reference Range Interpretation Comments Hemoglobin A1C 5.2 <5.7 % of total For the pu rpose of (test code = Hgb screening for t he 4548-4) presence ofdiab etes: <5.7% Consistent with the absence of diabetes5.7-6.4 % Consistent with increased risk for diabetes (prediabetes)> or =6.5% Consiste nt with diabetes T his assay result is consistent with a decreased risko f diabetes. Curre ntly, no consensus ex ists regarding use ofhemoglobin A1 c for diagnosis of di abetes in children. According to [place] er[place] Diabetes Associ ation (ADA)guidelines , hemoglobin A1c <7.0% represents optimalcontrol in non- di abetic patients. Differentmetric s may apply to specif ic patient populat ions. Standards of Wi dical Care in Diabetes(ADA). MUKESH (test code = FASTING:YESFASTING MUKESH) : YES RAC (test code = Performing RAC) Organization Information: Site ID: RGA Name: [facility] Lab Address: [address] [place] [address] Director: Braden Crowe [place] AnabaptistVitamin B1 [id number] 12:17:00 Test Item Value Reference Interpretation Comments Range Vitamin B1 (test 418 nmol/L 8-30 H Vitamin code = 48658-7) supplementat ion within 24 hours prior to blood draw may affect the accuracy of res ults. This test was developed and i ts analytical performance characteristics have been determined by [employer]. It has not been cleared or appr celeste by theA. This assay has been validated pursu ant to the CLIA regulations and is used for clinic al purposes. MUKESH (test code = FASTING:YESFASTIN MUKESH) G: YES RAC (test code = Performing RAC) Organization Information: Site ID: SLI Name: [facility] Address: [address] [place] [address] Director: Sachin Estrada M.D. Lab Interpretation Abnormal (test code = 75757-3) [place] MethodistThyroid stimulating [id number] 12:17:00 Test Item Value Reference Range Interpretation Comments TSH (test code = 2.48 0.40- 4.50 mIU/L 3016-3) MUKESH (test code = FASTING:YESFASTING: YES MUKESH) RAC (test code = Performing Organization RAC) Information: Site ID: RGA [facility] Address: [address] [place] [address] Director: Braden Crowe [facility] with platelet and [id number] 12:17:00 Test Item Value Reference Range Interpretation Comments WBC (test code = 9.4 3.8- 10.8 6690-2) Thousand/uL RBC (test code = 4.76 4.20- 5.80 789-8) Million/uL HGB (test code = 14.2 g/dL 13.2-17.1 718-7) HCT (test code = 42.3 % 38.5-50 4544-3) MCV (test code = 88.9 fL 80-100 787-2) MCH (test code = 29.8 pg 27-33 785-6) MCHC (test code = 33.6 g/dL 32-36 786-4) RDW (test code = 12.1 % 11-15 788-0) Platelet count (test 219 140- 400 code = 777-3) Thousand/uL MPV (test code = 9.5 fL 7.5-12.5 776-5) Neutrophils, absolute 6514 1,500 - 7,800 (test code = 751-8) cells/uL Lymphocytes, absolute 1692 850- 3,900 (test code = 731-0) cells/uL Monocytes, absolute 931 200- 950 cells/uL (test code = 742-7) Eosinophils, absolute 216 15- 500 cells/uL (test code = 711-2) Basophils, absolute 47 0- 200 cells/uL (test code = 704-7) Neutrophils (test 69.3 % code = 770-8) Lymphocytes (test 18.0 % code = 736-9) Monocytes (test code 9.9 % = 5905-5) Eosinophils (test 2.3 % code = 713-8) Basophils + RC (test 0.5 % code = 706-2) MUKESH (test code = MUKESH) FASTING:YESFASTING: YES RAC (test code = RAC) Performing Organization Information: Site ID: RGA Name[facility] Address: [address] [place] [phone] Director: Braden LamarVitamin D 25 hydroxy [id number] 12:17:00 Test Item Value Reference Range Interpretation Comments Vitamin D, 91 ng/mL 30-100 Vitamin D Statu s 25-hydroxy 25-OH Janett min (test code = D: Deficiency: 1988-) < 20 ng/mLInsufficie ncy: 20 - 29 ng/mLOptimal: > or = 30 ng/mL For 25-OH Vitamin D testi ng on patients on D2-supplementat ion and patients fo r whom quantitati on of D2 and D3 fractions is required, the QuestAssureD(TM )25- OH VIT D, (D2,D 3), LC/MS/MS is recommended: or bryanna code 43345 (patients >2yrs).See Note 1 Note 1 For additional information, pl ease refer to http://educatio n.Tello. [employer]/ faq/ZUV447 (Thi s link is being provided for informational/e duca tional purposes only.) MUKESH (test code FASTING:YESFASTING: = MUKESH) YES RAC (test code Performing = RAC) Organization Information: Site ID: [facility] Name: [facility] Lab Address: [address] [place] [address] Director: Braden Crowe [place] AnabaptistVitamin B12 and [id number] 12:17:00 Test Item Value Reference Range Interpretation Comments Vitamin B12 580 pg/mL 200-1100 (test code = 2132-9) Folate (test >24.0 ng/mL code = 2284-8) Reference Range Low: <3.4 Borderline: 3.4-5.4 Normal: >5.4 MUKESH (test code = FASTING:YESFASTING: MUKESH) YES RAC (test code = Performing RAC) Organization Information: Site ID: [facility] Name: [facility] Lab Address: [address] [place] [address] Director: Braden Crowe [place] AnabaptistFluzone High-Dose Quad PF (0.7mL syringe)2020-03-27 11:19:00Flu Vaccine Questions: 1. Have you ever had an allergic reaction to the flu Vaccine?: no 2. Are youallergic to eggs, egg products or gelatin?: no 3. Do you have a history of Guillain -Knox Syndrome?: no 4. Are you allergic to Thimerosal?: no 5. Are you allergic to Latex?: no 6. Do you currentlyfeel ill or have a fever?: no 7. If you are a female, are you ?: no All yes answers to thequestions above are reviewed with the physician before proceeding. Phil Dunne MethodistBilirubin [id number] 16:17:00 Test Item Value Reference Range Interpretation Comments Bilirubin direct 0.1 mg/dL < OR = 0.2 (test code = 1968-7) MUKESH (test code = MUKESH) FASTING:YESFASTING: YES RAC (test code = RAC) Performing Organization Information: Site ID: [facility] Name: [facility] Lab Address: [address] [place] [phone] Director: Braden Lu MethodistFerritin [id number] 16:17:00 Test Item Value Reference Range Interpretation Comments Ferritin level (test 73 ng/mL 24-380 code = 2276-4) MUKESH (test code = MUKESH) FASTING:YESFASTING: YES RAC (test code = RAC) Performing Organization Information: Site ID: RGA Name: [facility] Lab Address: [address] [place] [phone] Director: Braden Lu MethodistTransferrin [id number] 16:17:00 Test Item Value Reference Range Interpretation Comments Transferrin (test code 259 mg/dL 188-341 = 3034-6) MUKESH (test code = MUKESH) FASTING:YESFASTING: YES RAC (test code = RAC) Performing Organization Information: Site ID: IG Name: [facility] Lab Address: [address] [place] [phone] Director: Dr. Braden StreetistProthrombin time with [id number] 16:17:00 Test Item Value Reference Range Interpretation Comments INR (test code = 1.0 Reference R esther 6301-6) 0.9-1.1Moderate -i ntensity Warfar in Therapy 2.0-3.0Higher-i nt ensity Warfarin Therapy 3.0-4 .0 Prothrombin time 10.5 9.0- 11.5 sec For more (test code = information on 5902-2) this test, go to:http://educa ti on.Pavlokdiagnos ti cs.com/faq/FAQ1 04 MUKESH (test code = FASTING:YESFASTING: MUKESH) YES RAC (test code = Performing RAC) Organization Information: Site ID: RGA Name: [facility] Lab Address: [address] [place] [phone] Director: Braden Lu MethodistPartial thromboplastin time, [id number] 16:17:00 Test Item Value Reference Interpretation Comments Range PTT (test 34 22- 34 sec This test [place] = [place] 768[address]-4) monitoringunfra ctionated heparin therapy . For testing thatis validate d for this type of therapy , please referto the Hep bruce Anti-Xa assay (test cod e 43407). For additional info rmation, please refer tohttp://educat ion.Stamplay/faq/ RFX405(This link is being p rovided for informational/e ducational purposes only.) MUKESH (test FASTING:YESFASTIN code = G: YES MUKESH) RAC (test Performing code = Organization RAC) Information: Site ID: RGA [facility]: [facility] Address: [address] [place] [address] Director: Braden Croew [place] Karlo B surface [id number] 16:17:00 Test Item Value Reference Range Interpretation Comments Hepatitis B surface NON-REACTIVE NON-REACTIVE Ag (test code = 5196-1) MUKESH (test code = MUKESH) FASTING:YESFASTING: YES RAC (test code = RAC) Performing Organization Information: Site ID: RGA Name: [facility] Lab Address: [address] [place] [address] Director: Braden Crowe [place] aKrlo B surface [id number] 16:17:00 Test Item Value Reference Range Interpretation Comments Hepatitis B surface NON-REACTIVE NON-REACTIVE Ab (test code = 05672-2) MUKESH (test code = MUKESH) FASTING:YESFASTING: YES RAC (test code = RAC) Performing Organization Information: Site ID: [facility] Name: [facility] Lab Address: [address] [place] [address] Director: Braden Crowe [place] Karlo B core antibody [id number] 16:17:00 Test Item Value Reference Range Interpretation Comments Hepatitis B core NON-REACTIVE NON-REACTIVE total Ab (test code = 57796-5) MUKESH (test code = MUKESH) FASTING:YESFASTING: YES RAC (test code = RAC) Performing Organization Information: Site ID: [facility] Name: [facility] Lab Address: [address] [place] [address] Director: Braden Crowe [place] MethodBilltis A antibody [id number] 16:17:00 Test Item Value Reference Range Interpretation Comments Hepatitis A total NON-REACTIVE NON-REACTIVE For additi onal Ab (test code = information, 26844-3) please refer to http://WebChalet/faq/OLN393 (This link is being provided for informational/e du cational purpos es only.) MUKESH (test code = FASTING:YESFASTING: MUKESH) YES RAC (test code = Performing RAC) Organization Information: Site ID: RGA Name: [facility] Lab Address: [address] [place] [phone] Director: Braden Crowe Napavine Jadistpatitis A antibody [id number] 16:17:00 Test Item Value Reference Range Interpretation Comments Hepatitis A IgM NON-REACTIVE NON-REACTIVE For addition al (test code = information, 19977-2) please refer to http://WebChalet/faq/EAG662 (This link is being provided for informational/e du cational purpos es only.) MUKESH (test code = FASTING:YESFASTING: MUKESH) YES RAC (test code = Performing RAC) Organization Information: Site ID: RGA Name: [facility] Lab Address: [address] [place] [phone] Director: Braden Crowe Nap[place] MethodistCopper level, [id number] 16:17:00 Test Item Value Reference Range Interpretation Comments Copper (test 147 70- 175 mcg/dL This test wa s code = developed and i ts 5631-7) analytical perf ormance characteristics have been determined by [employer] . It has not been cl eared or approved by theA. This assay has been validated pursu ant to the CLIA regula tions and is used for clinical purpos es. MUKESH (test FASTING:YESFASTING: code = MUKESH) YES RAC (test Performing code = RAC) Organization Information: Site ID: [facility] Name: [facility] Address: [address] [place] [address] Director: Lalo Cisneros M.D., Ph.D [place] MethodistHepatitis C [id number] 16:17:00 Test Item Value Reference Range Interpretation Comments Hepatitis C Ab NON-REACTIVE NON-REACTIVE (test code = 64553-6) Signal/cutoff 0.01 <1.00 HCV antibody was (test code = non-reactive. 13747-5) There is no laboratory evidence of HCV infection. In m ost cases, no furth er action is required. However,if rece nt HCV exposure is suspected, a te st for HCV RNA(bull t code 74266) is suggested. For additional information ple ase refer [email or web address] ion [email or web address]/faq/[email or web address] (Th is link is myra forde provided for informational/e susan ational purpose s only.) MUKESH (test code = FASTING:YESFASTING: MUKESH) YES RAC (test code = Performing RAC) Organization Information: Site ID: [facility] Address: [address] [place] [address] Director: Braden Crowe Napavine AnabaptistTotal iron binding [id number] 16:17:00 Test Item Value Reference Range Interpretation Comments Iron level (test 147 50- 180 mcg/dL code = 2498-4) Iron binding 333 250- 425 mcg/dL capacity (test code (calc) = 2500-7) Iron saturation 44 20- 48 % (calc) (test code = 2502-3) MUKESH (test code = FASTING:YESFASTING: MUKESH) YES RAC (test code = Performing RAC) Organization Information: Site ID: [facility] Address: [address] [place] [address] Director: Braden Lamar Abdominal [id number] 13:55:10Hm Interface, Radiology Results Incoming - 06/07/2019 1:58 PM CSTEXAMINATION: US ABDOMINAL DOPPLERC LINICAL HISTORY: K70.30 Alcoholic cirrhosis of liver without ascites, R94.5 Abnormal results of liver function studies, Hematemesis, Portal HTNCOMPARISON: Same day abdominal ultrasound.TECHNIQUE: Daniel scale, color Doppler and spectral waveform analysis of the hepatic vasculature.IMPRESSION:1. PORTALVEINS: *Main portal vein: The main portal vein is patent. Portal vein velocity is 19.3 cm/sec. *Left Portal Vein: Not well seen.*Right Portal Vein:The right portal vein is patent.2. HEPATIC VEINS: *Right Hepatic Vein: The right hepatic vein is patent.*Middle Hepatic Vein: The middle hepatic vein is patent.*Left Hepatic Vein: The left hepatic vein is patent.3. HEPATIC ARTERIES: *Right Hepatic Artery: Not well seen.*Left Hepatic Artery: Not well seen.4. IVC: The inferior vena cava is patent.5. SMV: The superior mesenteric vein is not well seen.6. SPLENIC ARTERY/VEINS: *Splenic Artery/Vein at Spleen: The splenic artery/vein at the spleen are patent.*Splenic Artery/Vein at Midline: The splenic ashu ry/vein at the midline are not well seen.Dictated and approved by enrollment management vice president/fellow: Kely Metz, Donovan Mir Jr., M.D., personally reviewed the images and resident's/fellow's findings and agree with the final report.Napavine Anabaptist Abdomen [id number] 13:51:33Hm Interface, Radiology Results 06/07/2019 1:54 PM CSTEXAM: US ABDOMEN COMPLETECLINICAL DATA: K70.30 Alcoholic cirrhosis of liver without ascites, R94.5 Abnormal results of liver function studies, Abn liver function tests (LFTs), Cirrhosis or Fatty Liver, abn lftsCOMPARISON: NONE.FINDINGS:Findings are limited due to patient body habitus and adjacent bowel gas.LIVER: The liver demonstrates increased echogenicity, consistent with fatty infiltration. No focal mass or intrahepatic biliary ductal dilatation.MPV: Doppler evaluation of the portal vein demonstrates normal hepatopedal flow. The main portal vein measures 0.9 cm, within normal limits.GALLBLADDER: The gallbladder is without evidence of calculi. The gallbladder wall is not thickened and there is no pericholecystic fluid.CBD: The common bile duct is not well visualized.PANCREAS: The visualized portions of the pancreas are within normal limits.SPLEEN: The spleen is homogeneous and not enlarged measuring 9.3 x 2.3 x 3.2 cm.RIGHT KIDNEY: The right kidney is normal in size and echogenicity. There is no evidence of mass, calculi, or hydronephrosis. The right kidney measures 10.1 x 4.3 x 4.9 cm.LEFT KIDNEY: The left kidney is normal in size and echogenicity. There is no evidence of mass, calculi, or hydronephrosis. The leftkidney measures 10.5 x 6.6 x 4.7 cm.AORTA: The visualized upper abdominal aorta demonstrates no evidence of ectasia or aneurysm. IVC: The visualized portions of the inferior vena cava are unremarkable.ASCITES: No abnormal abdominal fluid collections are visualized. There is no evidence of ascites.PLEURAL EFFUSION: There are no pleural effusions.IMPRESSION:Hepatic steatosis.[facility]- [id number] and approved by enrollment management vice president/fellow: Isaiah Lew M.D.I, Donovan Mir Jr., M.D., personally reviewed the images and resident's/fellow's findings and agree with the final report.Aly Lamar
[2020-05-22 21:33] LABS: Absolute Lymphocytes (CBC) 0.8 K/uL (0.7-4.9); Basophils % 0.6 % (0-1.3); Lymphocytes % 7.4 % (15.3-44.8); RBC Red Blood Cell Count 4.64 M/uL (4.33-5.43)
[2020-05-22 21:38] LABS: Protime INR 1.02
[2020-05-22] MEDS ORDERED: MAGNES/ALUMIN/SIMET 30ML UCUP ONE (21:44)
[2020-05-22] MEDS ORDERED: FAMOTIDINE 20 MG/2 ML VIAL IV ONE (21:44)
[2020-05-22] MEDS ORDERED: NA CHLORIDE 0.9% 1,000 ML ONE (21:44)
[2020-05-22 21:50] LABS: ALT/SGPT 126 U/L (12-78); AST/SGOT 235 U/L (15-37); Albumin 3.6 g/dL (3.4-5.0); Alkaline Phosphatase 162 U/L (45-117); BUN Blood Urea Nitrogen 4 mg/dL (7-18); Bicarbonate 26 mmol/L (21-32); Bilirubin Direct 0.9 mg/dL (0-0.2); Bilirubin Total 1.4 mg/dL (0.2-1.0); Glucose Level 118 mg/dL (74-106); Lipase 54 U/L (73-393); Magnesium 1.8 mg/dL (1.8-2.4); NT PRO-BNP 272 pg/mL (<125); Potassium 3.9 mmol/L (3.5-5.1); Protein, Total 7.1 g/dL (6.4-8.2); Sodium Level 129 mmol/L (136-145); Troponin (Emerg Dept Use Only) < 0.02 ng/mL (0.0-0.045)
[2020-05-22 23:33] LABS: Blood Morphology Comment NOT SEEN (NOT SEEN); Platelet Estimate ADEQ
--- NOTE | 2020-05-23 00:30 | EDPHYS ---
Physician Documentation [facility] Name: Tanmay Caruso Age: 64 yrs Sex: Male : 1955 Arrival Date: 05/22/2020 Time: 21:14 Bed 3 Private MD: ED Physician Edna Balderas HPI: 05/22 22:35 This 64 yrs old Male presents to ER via EMS with complaints of Chest Pain. ma2 22:35 The patient or guardian reports chest pain that is located primarily in the substernal ma2 area, epigastric area. Onset: gradually, 1 hour(s) ago. Associated signs and symptoms: Pertinent negatives: diaphoresis, headache, lower extremity swelling, nausea, syncope, vomiting. Severity of pain: At its worst the pain was moderate in the emergency department the pain is unchanged. The patient has experienced similar episodes in the past. Historical: - Allergies: 21:28 No Known Allergies; rr5 - Home Meds: 21:28 carvedilol oral oral [Active]; Omeprazole Oral [Active]; tadalafil oral oral [Active]; rr5 - PMHx: 21:28 GERD; prostate Cancer; Hypertension; rr5 - PSHx: 21:28 porstaste surgery; rr5 - Immunization history:: Adult Immunizations up to date. - Social history:: Smoking status: unknown Patient uses alcohol, on a daily basis. Patient/guardian denies using street drugs, Patient/guardian denies using alcohol, The patient lives with family. - Family history:: not pertinent. ROS: 22:35 Constitutional: Negative for fever, chills, and weight loss. ma2 22:35 All other systems are negative. Exam: 22:35 Constitutional: This is a well developed, well nourished patient who is awake, alert, ma2 and in no acute distress. Head/Face: Normocephalic, atraumatic. Eyes: Pupils equal round and reactive to light, extra-ocular motions intact. Lids and lashes normal. Conjunctiva and sclera are non-icteric and not injected. Cornea within normal limits. Periorbital areas with no swelling, redness, or edema. ENT: Nares patent. No nasal discharge, no septal abnormalities noted. Tympanic membranes are normal and external auditory canals are clear. Oropharynx with no redness, swelling, or masses, exudates, or evidence of obstruction, uvula midline. Mucous membranes moist. Neck: Trachea midline, no thyromegaly or masses palpated, and no cervical lymphadenopathy. Supple, full range of motion without nuchal rigidity, or vertebral point tenderness. No Meningismus. Chest/axilla: Normal chest wall appearance and motion. Nontender with no deformity. No lesions are appreciated. Cardiovascular: Regular rate and rhythm with a normal S1 and S2. No gallops, murmurs, or rubs. Normal PMI, no JVD. No pulse deficits. Respiratory: Lungs have equal breath sounds bilaterally, clear to auscultation and percussion. No rales, rhonchi or wheezes noted. No increased work of breathing, no retractions or nasal flaring. Abdomen/GI: Soft, non-tender, with normal bowel sounds. No distension or tympany. No guarding or rebound. No evidence of tenderness throughout. Back: No spinal tenderness. No costovertebral tenderness. Full range of motion. Skin: Warm, dry with normal turgor. Normal color with no rashes, no lesions, and no evidence of cellulitis. MS/ Extremity: Pulses equal, no cyanosis. Neurovascular intact. Full, normal range of motion. Neuro: Awake and alert, GCS 15, oriented to person, place, time, and situation. Cranial nerves II-XII grossly intact. Motor strength 5/5 in all extremities. Sensory grossly intact. Cerebellar exam normal. Normal gait. Vital Signs: 21:15 BP 149 / 79; Pulse 98; Resp 15; Temp 98; Pulse Ox 96% ; Weight 88.45 kg; Height 5 ft. 6 rr5 in. (167.64 cm); Pain 4/10; 21:50 BP 140 / 64; Pulse 79; Resp 19; Pulse Ox 100% ; rr5 23:00 BP 139 / 68; Pulse 84; Resp 19; Pulse Ox 98% ; rr5 1201 00:00 BP 144 / 79; Pulse 90; Resp 21; Pulse Ox 99% ; rr5 00:40 BP 152 / 83; Pulse 90; Resp 17; Temp 101.8; Pulse Ox 96% ; rr5 02:00 BP 137 / 74; Pulse 85; Resp 14; Temp 99.9; Pulse Ox 97% on 2 lpm NC; rr5 03:00 BP 142 / 87; Pulse 83; Resp 15; Pulse Ox 99% on 2 lpm NC; rr5 04:20 BP 146 / 80; Pulse 89; Resp 16; Pulse Ox 98% ; rr5 05:28 BP 141 / 66; Pulse 83; Resp 19; Temp 99.2; Pulse Ox 99% ; rr5 05/22 21:15 Body Mass Index 31.47 (88.45 kg, 167.64 cm) rr5 02:00 O2 sat drops to 91% hooked to oxygen rr5 MDM: 05/22 21:15 Patient medically screened. ma2 22:35 Differential diagnosis: Cholelithiasis gastroesophageal reflux disease (GERD), ma2 pancreatitis, pericarditis, pneumonia. ELSA Risk Score: 1 - patient's age is greater or equal to 65 years, 1 - Three or more CAD risk factors. 05/23 00:25 Data reviewed: vital signs, nurses notes. Counseling: I had a detailed discussion with ma the patient and/or guardian regarding: the historical points, exam findings, and any diagnostic results supporting the discharge/admit diagnosis, the presence of at least one elevated blood pressure reading (>120/80) during this emergency department visit, the need for outpatient follow up. Response to treatment: the patient's symptoms have markedly improved after treatment. ED course: patient has stone at CBC and acute rashaad, given antibiotics, no gi available in our hospital tonight, will transfer emergently for higher level of care... 05/22 21:17 Order name: Basic Metabolic Panel; Complete Time: 22:18 sd2 05/22 21:17 Order name: CBC with Diff; Complete Time: 23:41 sd2 05/22 21:17 Order name: LFT's; Complete Time: 22:18 sd2 05/22 21:17 Order name: Magnesium; Complete Time: 22:18 sd2 05/22 21:17 Order name: NT PRO-BNP; Complete Time: 22:18 sd2 05/22 21:17 Order name: PT-INR; Complete Time: 22:18 sd2 05/22 21:17 Order name: Troponin (emerg Dept Use Only); Complete Time: 22:18 sd2 05/22 21:17 Order name: XRAY Chest (1 view) [facility] 05/22 21:17 Order name: Lipase; Complete Time: 22:18 sd2 05/22 21:51 Order name: Manual Differential; Complete Time: 23:41 EDOR 05/23 01:39 Order name: Lactate sd2 05/23 01:44 Order name: SARS-COV-2 RT PCR EDOR 05/23 05:26 Order name: Lactate Sepsis 2 HR Follow-up [facility] 05/22 21:17 Order name: EKG; Complete Time: 21:18 sd2 05/22 21:17 Order name: Cardiac monitoring; Complete Time: 21:42 sd2 05/22 21:17 Order name: EKG - Nurse/Tech; Complete Time: 21:42 sd2 05/22 21:17 Order name: IV Saline Lock; Complete Time: 21:42 sd2 05/22 21:17 Order name: Labs collected and sent; Complete Time: 21:43 sd2 05/22 21:17 Order name: O2 Per Protocol; Complete Time: 21:43 sd2 05/22 21:17 Order name: O2 Sat Monitoring; Complete Time: 21:43 sd2 05/22 22:19 Order name: CT Abd/Pelvis - IV Contrast Only [facility] 05/22 23:57 Order name: NPO; Complete Time: 23:57 ma2 Administered Medications: 05/22 21:34 Drug: GI Cocktail without - (Maalox Suspension 30 ml, Lidocaine Liquid 2 % 15 rr5 ml) Route: PO; 22:30 Follow up: Response: No adverse reaction rr5 21:35 Drug: Pepcid 20 mg Route: IVP; Site: left antecubital; rr5 22:30 Follow up: Response: No adverse reaction rr5 21:35 Drug: NS 0.9% 1000 ml Route: IV; Rate: 1 bolus; Site: left antecubital; rr5 23:10 Follow up: Response: No adverse reaction; IV Status: Completed infusion; IV Intake: rr5 1000ml 05/23 00:38 CANCELLED (Patient Refused): Tylenol 1000 mg PO once [facility] 00:41 Drug: TORadol 30 mg Route: IVP; Site: left antecubital; 01:40 Follow up: Response: No adverse reaction; Temperature is decreased rr5 00:43 Drug: Zosyn 3.375 grams Route: IVPB; Infused Over: 60 mins; Site: left antecubital; 01:40 Follow up: Response: No adverse reaction; IV Status: Completed infusion; IV Intake: rr5 100ml 02:00 Drug: Valium 5 mg Route: IVP; Site: left antecubital; rr5 03:00 Follow up: Response: No adverse reaction rr5 Disposition: 05/23/20 00:29 Transfer ordered to [facility]. Diagnosis are Cholangitis, Calculus of gallbladder and bile duct with acute cholecystitis with obstruction. - Reason for transfer: Higher level of care. - Accepting physician is accepted by dr. Smith and dr. zachary COTA. - Condition is Stable. - Problem is new. - Symptoms are unchanged. Signatures: Dispatcher [employer] EDMS Isidoro Ortega Edna Balderas MD MD ma2 Nic Nino RN RN rr5 Corrections: (The following items were deleted from the chart) 00:34 11 23:42 CORONAVIRUS+MR.LAB.BRZ ordered. EDOR EDOR 05/23 00:38 00:34 Tylenol 1000 mg PO once ordered. ma2 ma2 01:40 00:29 05/23/2020 00:29 Transfer ordered to [facility]. Diagnosis is ma2 Cholangitis; Calculus of gallbladder and bile duct with acute cholecystitis with obstruction. Reason for transfer: Higher level of care. Accepting physician is OSH. Condition is Stable. Problem is new. Symptoms are unchanged. ma2 05:32 01:40 05/23/2020 00:29 Transfer ordered to [facility]. Diagnosis is rr5 Cholangitis; Calculus of gallbladder and bile duct with acute cholecystitis with obstruction. Reason for transfer: Higher level of care. Accepting physician is accepted by dr. Smith and dr. zachary COTA. Condition is Stable. Problem is new. Symptoms are unchanged. ma2
--- NOTE | 2020-05-23 00:30 | ER ---
Nurse's Notes [facility] Name: Tanmay Caruso Age: 64 yrs Sex: Male : 1955 Arrival Date: 05/22/2020 Time: 21:14 Bed 3 Private MD: Diagnosis: Cholangitis;Calculus of gallbladder and bile duct with acute cholecystitis with obstruction Presentation: 05/22 21:15 Chief complaint: EMS states: he started to have chest pain 3 hours ago with shortness rr5 of breath. pain more on inspiration. when we arrived his HR is 40bpm but it went up to 50bpm. 21:15 Coronavirus screen: shortness of breath, Client presents with at least one sign or rr5 symptom that may indicate coronavirus-19. Standard/surgical mask placed on the client. Provider contacted for isolation considerations. Ebola Screen: Patient negative for fever greater than or equal to 101.5 degrees Fahrenheit, and additional compatible Ebola Virus Disease symptoms Patient denies exposure to infectious person. Patient denies travel to an Ebola-affected area in the 21 days before illness onset. Initial Sepsis Screen: Does the patient meet any 2 criteria? No. Patient's initial sepsis screen is negative. Does the patient have a suspected source of infection? No. Patient's initial sepsis screen is negative. Risk Assessment: Do you want to hurt yourself or someone else? Patient reports no desire to harm self or others. Onset of symptoms was May 22, 2020. Care prior to arrival: Oxygen administered. via nasal cannula. 21:15 Method Of Arrival: EMS: [facility] rr5 21:15 Acuity: SHAWN 3 rr5 Historical: - Allergies: 21:28 No Known Allergies; rr5 - Home Meds: 21:28 carvedilol oral oral [Active]; Omeprazole Oral [Active]; tadalafil oral oral [Active]; rr5 - PMHx: 21:28 GERD; prostate Cancer; Hypertension; rr5 - PSHx: 21:28 porstaste surgery; rr5 - Immunization history:: Adult Immunizations up to date. - Social history:: Smoking status: unknown Patient uses alcohol, on a daily basis. Patient/guardian denies using street drugs, Patient/guardian denies using alcohol, The patient lives with family. - Family history:: not pertinent. Screenin:16 Abuse screen: Denies threats or abuse. Denies injuries from another. Nutritional rr5 screening: No deficits noted. Tuberculosis screening: No symptoms or risk factors identified. Fall Risk IV access (20 points). Total Quintero Fall Scale indicates No Risk (0-24 pts). Assessment: 21:15 General: Appears in no apparent distress. uncomfortable, Behavior is calm, cooperative, rr5 appropriate for age, Reports chills for family member reported patient had alcohol intake 5-6 today. Pain: Complains of pain in chest Pain currently is 4 out of 10 on a pain scale. Quality of pain is described as aching, Pain began gradually, Is intermittent. Neuro: Level of Consciousness is awake, alert, obeys commands, Oriented to person, place, time, situation. Cardiovascular: Reports chest pain, Capillary refill < 3 seconds Patient's skin is warm and dry. Respiratory: Reports shortness of breath Airway is patent Respiratory effort is even, unlabored, Respiratory pattern is regular, symmetrical. GI: No signs and/or symptoms were reported involving the gastrointestinal system. : No signs and/or symptoms were reported regarding the genitourinary system. EENT: No signs and/or symptoms were reported regarding the EENT system. Derm: Skin is intact, is healthy with good turgor, Skin temperature is warm. Musculoskeletal: Circulation, motion, and sensation intact. Capillary refill < 3 seconds. 22:30 Reassessment: Patient appears in no apparent distress at this time. Patient is alert, rr5 oriented x 3, equal unlabored respirations, skin warm/dry/pink. reassess by ED provider for admission and additional orders made. 23:06 Reassessment: Patient appears in no apparent distress at this time. Patient is alert, rr5 oriented x 3, equal unlabored respirations, skin warm/dry/pink. back from CT scan. 12 00:15 Reassessment: Patient appears in no apparent distress at this time. Patient is alert, rr5 oriented x 3, equal unlabored respirations, skin warm/dry/pink. ED provider reassess the patient with advised for transfer. 02:00 Reassessment: patient become uneasy he verbalized I drink a lot of beer usually 8-10 rr5 beer can /day now I am cutting out I drank 6-8 cans today and i feel like I'm withdrawing . ED provider with order made and carried out. 02:44 Reassessment: transfer center notified of patient lactate of 3.6, awaiting a call back sg at this time. 03:00 Reassessment: Patient appears in no apparent distress at this time. resting eyes closed rr5 breathing spontaneously with oxygen support at 2 liter via nasal cannula. 03:05 Reassessment: attempt to give pt report to [facility] at , nurse states they did not know sg they were receiving a patient. pt updated on delay of transfer, stated understanding. the transfer center stated to give the [facility] staff 15 mins and attempt to call report again. 03:30 Reassessment: Called [facility] at this time, Spoke with Jody JIMÉNEZ once again, she states sg there is no bed assignment for this patient. awaiting a call back from Jody JIMÉNEZ after she speaks with their transfer center. awaiting a call back at this time. 03:52 Reassessment: Patient appears in no apparent distress at this time. awaiting for rr5 transfer. 05:30 Reassessment: Patient appears in no apparent distress at this time. Patient is alert, rr5 oriented x 3, equal unlabored respirations, skin warm/dry/pink. report given to republic awake alert no complaints made. vital signs taken and recorded. Vital Signs: 05/22 21:15 BP 149 / 79; Pulse 98; Resp 15; Temp 98; Pulse Ox 96% ; Weight 88.45 kg; Height 5 ft. 6 rr5 in. (167.64 cm); Pain 4/10; 21:50 BP 140 / 64; Pulse 79; Resp 19; Pulse Ox 100% ; rr5 23:00 BP 139 / 68; Pulse 84; Resp 19; Pulse Ox 98% ; rr5 12/01 00:00 BP 144 / 79; Pulse 90; Resp 21; Pulse Ox 99% ; rr5 00:40 BP 152 / 83; Pulse 90; Resp 17; Temp 101.8; Pulse Ox 96% ; rr5 02:00 BP 137 / 74; Pulse 85; Resp 14; Temp 99.9; Pulse Ox 97% on 2 lpm NC; rr5 03:00 BP 142 / 87; Pulse 83; Resp 15; Pulse Ox 99% on 2 lpm NC; rr5 04:20 BP 146 / 80; Pulse 89; Resp 16; Pulse Ox 98% ; rr5 05:28 BP 141 / 66; Pulse 83; Resp 19; Temp 99.2; Pulse Ox 99% ; rr5 05/22 21:15 Body Mass Index 31.47 (88.45 kg, 167.64 cm) rr5 02:00 O2 sat drops to 91% hooked to oxygen rr5 ED Course: 05/22 21:14 Patient arrived in ED. mw2 21:14 Nic Nino, TINO is Primary Nurse. rr5 21:15 Edna Balderas MD is Attending Physician. ma2 21:15 Maintain EMS IV. Dressing intact. Good blood return noted. Site clean \T\ dry. Gauge \T\ rr 5 site: G18 left AC. 21:15 Arm band placed on left wrist. rr5 21:16 Patient has correct armband on for positive identification. Placed in gown. Bed in low rr5 position. Call light in reach. Side rails up X2. computer salesperson retail on. Pulse ox on. NIBP on. 21:20 EKG done, by ED staff, reviewed by Edna Balderas MD. rr5 21:26 Triage completed. rr5 22:06 XRAY Chest (1 view) In Process Unspecified. EDMS 23:17 CT Abd/Pelvis - IV Contrast Only In Process Unspecified. EDMS 23:49 COVID swab sent to lab. rr5 05/23 00:18 initiated transfer with Holly from [facility]. They denied transfer due [facility] to not having GI franchise field consultant. 00:21 initiated a transfer with Julianne Ricardo from [facility]. Pt wanted [facility] to try [facility]. 00:46 Julianne Ricardo from [facility] called denying transfer to [address] due to not having beds or GI franchise field consultant. told Julianne Ricardo to try to see if there is beds available at [facility]. She will give us a call back. 02:40 Notified ED physician of a critical lab result(s). Lactate of 3.6. 02:47 administrative approval given by Julianne Ricardo/ patient has been accepted to the [facility] at [address]/ Dr. Hernandez has accepted the patient in transfer/ report to be called to [phone]. 05:32 No provider procedures requiring assistance completed. Patient transferred, IV remains rr5 in place. intact, No redness/swelling at site. Administered Medications: 05/22 21:34 Drug: GI Cocktail without - (Maalox Suspension 30 ml, Lidocaine Liquid 2 % 15 rr5 ml) Route: PO; 22:30 Follow up: Response: No adverse reaction rr5 21:35 Drug: Pepcid 20 mg Route: IVP; Site: left antecubital; rr5 22:30 Follow up: Response: No adverse reaction rr5 21:35 Drug: NS 0.9% 1000 ml Route: IV; Rate: 1 bolus; Site: left antecubital; rr5 23:10 Follow up: Response: No adverse reaction; IV Status: Completed infusion; IV Intake: rr5 1000ml 05/23 00:38 CANCELLED (Patient Refused): Tylenol 1000 mg PO once ma2 00:41 Drug: TORadol 30 mg Route: IVP; Site: left antecubital; 01:40 Follow up: Response: No adverse reaction; Temperature is decreased rr5 00:43 Drug: Zosyn 3.375 grams Route: IVPB; Infused Over: 60 mins; Site: left antecubital; 01:40 Follow up: Response: No adverse reaction; IV Status: Completed infusion; IV Intake: rr5 100ml 02:00 Drug: Valium 5 mg Route: IVP; Site: left antecubital; rr5 03:00 Follow up: Response: No adverse reaction rr5 Intake: 05/22 23:10 IV: 1000ml; Total: 1000ml. rr5 12 01:40 IV: 100ml; Total: 1100ml. rr5 Output: 02:30 Urine: 450ml (Voided); Total: 450ml. rr5 05:08 Urine: 300ml (Voided); Total: 750ml. rr5 Outcome: 00:29 ER care complete, transfer ordered by . ma2 04:15 Transferred by ground EMS Transfer form completed. Note: report givin to Meryl JIMÉNEZ sg 04:15 Condition: stable 05:32 Instructed on the need for transfer. rr5 05:32 Patient left the ED. rr5 Signatures: Dispatcher [employer] EDMS Ronnell Carr RN RN sg Habalo, Winsy wh Alzahri, Mohammad, MD MD ma2 Benjy Guzman 2 Nic Nino RN RN rr5 Corrections: (The following items were deleted from the chart) 01:04 05/22 21:15 Chief complaint: EMS states: he started to have chest 3 hours ago with rr5 shortness of breath. pain more on inspiration. when we arrived his HR is 40bpm but it went up to 50bpm. rr5 05/23 03:51 02:00 BP 137 / 74; Pulse 85bpm; Resp 14bpm; Pulse Ox 97% 2 lpm Nasal Cannula; O2 sat rr5 drops to 91% hooked to oxygen; rr5
[2020-05-23] MEDS ORDERED: PIPER/TAZO/NS 3.375gm 3.375 GM/100 ML BAG ONE (00:42)
[2020-05-23] MEDS ORDERED: ACETAMINOPHEN 500 MG TAB ONE (00:49)
[2020-05-23] MEDS ORDERED: KETOROLAC 30 MG/ML INJ ONE (00:53)
[2020-05-23] MEDS ORDERED: DIAZEPAM 10 MG/2 ML INJ SYRINGE ONE (02:01)
[2020-05-23 05:59] VITALS: BP 141/66; TEMP 99.2; O2SAT 99
--- NOTE | 2020-05-23 07:23 | RAD REPORT ---
EXAM DESCRIPTION: Kaylan Single View05/22/2020 10:06 pm CLINICAL HISTORY: Chest pain COMPARISON: none FINDINGS: The lungs appear clear of acute infiltrate. The heart is normal size IMPRESSION: No acute abnormalities displayed
--- NOTE | 2020-05-23 12:22 | RAD REPORT ---
EXAM DESCRIPTION: CT - Abdomen Pelvis W Contrast - 05/23/2020 6:53 am CLINICAL HISTORY: ABD PAIN TECHNIQUE: Contiguous axial images obtained through the abdomen and pelvis following the uneventful administration of IV contrast. Coronal and sagittal reformatted images were provided. This exam was performed according to our departmental dose-optimization program, which includes autom ated exposure control, adjustment of the mA and/or kV according to patient size and/or use of iterati ve reconstruction technique. COMPARISON: None available for comparison. FINDINGS: Lung bases: No focal consolidation. Small hiatal hernia. Liver: The liver is enlarged and diffusely low in density compatible with steatosis. Gallbladder and biliary system: Gallstones. Mild gallbladder wall thickening. Trace pericholecystic f luid. The common duct appears mildly hyperemic. Focal 7 mm density within the distal common bile (ser ies 401 image 32 and series 502 image 65). Pancreas: Mild pancreatic parenchymal atrophy. Spleen: Unremarkable Adrenals: Unremarkable Kidneys: Mild bilateral perinephric stranding. Normal renal cortical enhancement. No calculi. No hydr onephrosis. Bowel: Duodenal diverticulum. Scattered colonic diverticula without adjacent inflammatory change. No obstruction. No appreciable mucosal thickening. Appendix: Normal caliber appendix. No findings to suggest acute appendicitis. Urinary bladder: Unremarkable Reproductive: Unremarkable as visualized Lymph nodes: No pathologically enlarged lymph nodes. Peritoneum: No focal fluid collection. No free air. Vessels: Mild to moderate atherosclerotic disease. No abdominal aortic aneurysm. Abdominal wall: Tiny fat-containing umbilical hernia. Small bilateral fat-containing inguinal hernias . Ovoid soft tissue density within the inferior aspect of the left inguinal canal suggestive of a ret racted/undescended testis. Bones: Multilevel spondylosis. No acute fracture. Chronic bilateral pars interarticularis defects at L5 with associated grade 1 spondylolisthesis of L5 on S1. IMPRESSION: 1. Constellation of findings suggestive of acute cholecystitis. The common duct appear s mildly hyperemic, possibly reactive or related to cholangitis. Possible 7 mm gallstone within the d istal common bile duct. 2. Mild bilateral perinephric stranding. This is nonspecific and may be chronic. Acute superimposed inflammatory process not excluded. 3. Other findings as above. Electronically signed by: Vicente Anna MD 05/22/2020 11:41 PM VOICE PATHOLOGIST Due to temporary technical issues with the PACS/Fluency reporting system, reports are being signed by the in house radiologists without review as a courtesy to insure prompt reporting. The interpreting radiologist is fully responsible for the content of the report.
--- NOTE | 2020-05-24 06:10 | EKG ---
Test Date: 2020-05-22 Test Time: 21:10:49 [employer]ilizer Applicator: ROSA ISELA MEASUREMENT RESULTS: Intervals: Rate: 60 OK: 222 QRSD: 82 QT: 444 QTc: 444 [place]: P: 44 OK: 222 QRS: -14 T: 29 INTERPRETIVE STATEMENTS: Sinus rhythm with 1st degree AV block Otherwise normal ECG No previous ECG available for comparison Electronically Signed On 05-24-20 06:09:03 [employer] by Tr Lomax
== END 2020-05-23 05:32 | disposition short-term general hospital (02) ==
LOC: ER 21:05
DX: K83.09 Other cholangitis (principal); K80.63 Calculus of gallbladder and bile duct with acute cholecystitis with obstruction; I10 Essential (primary) hypertension; K21.9 Gastro-esophageal reflux disease without esophagitis; Z20.828 Contact with and (suspected) exposure to other viral communicable diseases; Z85.46 Personal history of malignant neoplasm of prostate
CPT/HCPCS: 93005; 85025; 80048; 36415; 83735; 85610; 80076; 83605 ×2; 84484; 83690; 83880; 74177; 71045; U0003; Q9967; J3360; J2543; J7030; 96361; 96365; 96375; 99285